=== PATIENT | female | born 1995 | race Caucasian/White ===

== ENCOUNTER 2017-02-24 00:17 | Emergency (ER) | payer OTHER ==
[~2017-02-24] VITALS: Ht 160 cm; Wt 88.0 kg
[~2017-02-24 00:17] MED LIST: CIPR500T4 PO; ONDA4TAB8 PO; PRENAT PO; RANI150T9 PO
[2017-02-24 00:38] VITALS: Ht 160 cm; Wt 88.0 kg
[2017-02-24 02:19] LABS: ADD UMIC YES; URINE BILIRUBIN (Dip) NEGATIVE (NEGATIVE); URINE BLOOD (Dip) TRACE (NEGATIVE); URINE COLOR LT. YELLOW (YELLOW); URINE GLUCOSE (Dip) NEGATIVE (NEGATIVE); URINE KETONES (Dip) NEGATIVE (NEGATIVE); URINE LEUKOCYTE ESTERASE (Dip) NEGATIVE (NEGATIVE); URINE NITRITE (Dip) NEGATIVE (NEGATIVE); URINE TOTAL PROTEIN (Dip) NEGATIVE (NEGATIVE); URINE UROBILINOGEN (Dip) 0.2 E.U./dL (0.1-1.0)
[2017-02-24 02:38] LABS: URINE RBCS 0-2 /HPF (0)
[2017-02-24 02:39] LABS: BACTERIA,URINE RARE; MUCUS,URINE FEW; SQUAMOUS EPITHELIAL CELL,UR FEW
[2017-02-24] MEDS ORDERED: PHEN-538 PO (02:55)
--- NOTE | 2017-02-24 03:19 | ERD ---
ER Documentation Chief Complaint Date/Time DATE: 02/24/17 TIME: 03:14 Chief Complaint Bladder pain and constant urination. recurrent hx of UTI per pt HPI This is a 21-year-old female presenting to the emergency department complaining of pressure like vaginal pressure with sensation of feeling like bulge this past week. Patient denies significant pain, states it is more pressure rating it moderate in severity. She admits to urgency. Patient denies hematuria, vaginal discharge, fevers, flank pain. Patient denies taking any medications for this. ROS All systems reviewed and are negative except as per history of present illness. Medications Home Meds Active Scripts Phenazopyridine Hcl* (Pyridium*) 200 Mg Tab, 200 MG PO TID Y for URINARY PAIN, # 6 TAB Prov:MERARI DANIELLE PA-C 02/24/17 Ranitidine Hcl* (Zantac*) 150 Mg Tablet, 150 MG PO BID Y for EPIGASTRIC PAIN, # 30 TAB Prov:MAMIE REECE DO 10/02/16 Ondansetron Hcl* (Zofran*) 4 Mg Tablet, 4 MG PO Q8H Y for NAUSEA AND/OR VOMITING , #10 TAB Prov:MAMIE REECE DO 10/02/16 Ciprofloxacin Hcl* (Ciprofloxacin Hcl*) 500 Mg Tablet, 500 MG PO BID for 3 Days , TAB Prov:MAMIE REECE DO 10/02/16 Reported Medications Multivit/Min/Fol Ac/Iron/Pren* ( S*) 1 Tab Tab, 1 TAB PO DAILY, TAB 06/16/16 Allergies Allergies: Coded Allergies: No Known Allergy (Unverified , 06/16/16) PMhx/Soc History of Surgery: Yes () Anesthesia Reaction: No Hx Neurological Disorder: No Hx Respiratory Disorders: No Hx Cardiac Disorders: No Hx Psychiatric Problems: No Hx Miscellaneous Medical Probl: Yes (chronic utis) Hx Alcohol Use: No Hx Substance Use: No Hx Tobacco Use: No Smoking Status: Never smoker Physical Exam Vitals Vital Signs Date Time Temp Pulse Resp B/P Pulse Ox O2 Delivery O2 Flow Rate FiO2 02/24/17 00:38 98.7 89 20 123/74 97 Physical Exam GENERAL: well-developed/well-nourished, in no apparent distress, non-toxic appearing HENT: NC/AT, moist mucous membranes EYES: Conjunctiva normal NECK: Supple, no lymphadenopathy PULM: CTA bilaterally, no rales, rhonchi, or wheezing heard CV: Normal S1S2, RRR, good capillary refill GI: Soft, non-distended, mild tender to palpation pelvic Normal bowel sounds, no masses or organomegaly felt on exam No gross peritonitis, no bruits Negative Rovsing, negative Jimenez, negative McBurney's point, Negative CVAT BACK: No masses EXT: No clubbing, cyanosis, or edema NEURO: Alert and Orientated SKIN: Intact, normal turgor PSYCH: Normal mood and mentation Results 24 hrs Laboratory Tests Test 02/24/17 01:35 Urine Color LT. YELLOW Urine Clarity CLEAR Urine pH 5.5 Urine Specific [place] >=1.030 Urine Ketones NEGATIVE Urine Nitrite NEGATIVE Urine Bilirubin NEGATIVE Urine Urobilinogen 0.2 E.U./dL Urine Leukocyte Esterase NEGATIVE Urine Microscopic RBC 0-2/HPF Urine Microscopic WBC 0-2/HPF Urine Squamous Epithelial Cells FEW Urine Bacteria RARE Urine Mucus FEW Urine Hemoglobin TRACE Urine Glucose NEGATIVE% Urine Total Protein NEGATIVE Procedures/MDM This is a 21-year-old female presenting to the emergency department complaining of pressure like sensation in the vaginal region for the past week with urgency likely due to a uterine prolapse. I will low suspicion for urinary tract infection, pyelonephritis, nephrolithiasis due to physical examination. Patient has stable vital signs, she appears well. A urinalysis was done and did not show any evidence of urinary tract infection or hemoglobin. Urine test is negative. I discussed the patient that she is suitable to follow-up with an NET MVC DEVELOPER for further evaluation and management. I discussed with her to return to the ER for any worsening signs or symptoms. Patient stable for discharge for home. Prescription for Pyridium was provided. Patient understands and agrees with this plan Departure Diagnosis: Primary Impression: Uterine prolapse Additional Impression: Dysuria Condition: Stable Patient Instructions: Dysuria, Pelvic Organ Prolapse: Surgery for Uterine Prolapse Referrals: [facility] DEVELOPER REFERRAL LIST CINDY MEJÍA [place] [id number]ABUSLE[address] MAN[address] [place] [id number] [address] VAL[address] [place]AMIDE [id number] [facility] , [place] [address] [address] BRITO, [facility] [address], [address], [place] [address] [facility] [address] [facility], [place] [address] [facility] [address] [place] [address] [facility] [id number] [address] WATT FANY [address] [place] [address] [address] WADDELL, [place] [address] [facility]. [address], [facility] [address] [address] SORTO, [facility] [address] [place], [place] [address] Additional Instructions: FOLLOW UP WITH YOUR PRIMARY CARE PHYSICIAN TOMORROW.Return to this facility if you are not improving as expected. Take all medicines as directed. Return to this facility if you are not improving as expected. MERARI DANIELLE PA-C February 24, 2017 03:19
== END 2017-02-24 03:19 | disposition home or self-care (01) ==
LOC: FTE 00:17
DX: N81.4 Uterovaginal prolapse, unspecified (principal); R30.0 Dysuria; R10.2 Pelvic and perineal pain
CPT/HCPCS: 81001; 87591; Z7502; 81003; 99283

== ENCOUNTER 2017-06-24 07:01 | Emergency (ER) | payer OTHER ==
[~2017-06-24] VITALS: Ht 152.4 cm; Wt 85.0 kg
[~2017-06-24 07:01] MED LIST changes: +PHEN-538 PO
[2017-06-24 07:03] VITALS: Ht 152.4 cm; Wt 85.0 kg
[2017-06-24] MEDS ORDERED: ONDANSETRON 4 MG INJ IV STA (07:19)
[2017-06-24] MEDS ORDERED: SOD CHLORIDE 0.9% 1,000 ML IV STA (07:19)
[2017-06-24] MEDS ORDERED: morphine 4 MG/ML VIAL IV STA (07:19)
[2017-06-24] MEDS ORDERED: HYDROmorphONE 1 MG/ML SYG IV STA (07:38)
[2017-06-24 07:50] LABS: BASOPHIL # 0.1 10^3/ul (0.0-0.1); BASOPHILS % 0.6 % (0.0-2.0); EOSINOPHILS # 0.4 10^3/ul (0.0-0.5); HEMATOCRIT 44.9 % (37.0-47.0); HEMOGLOBIN 14.5 g/dl (12.0-16.0); LYMPHOCYTES # 3.3 10^3/ul (0.8-2.9); LYMPHOCYTES % 33.3 % (15.0-51.0); MEAN CORPUSCULAR HEMOGLOBIN 26.6 pg (29.0-33.0); MEAN CORPUSCULAR HGB CONC 32.3 g/dl (32.0-37.0); MEAN CORPUSCULAR VOLUME 82.4 fl (82.0-101.0); MEAN PLATELET VOLUME 10.4 fl (7.4-10.4); MONOCYTE # 0.7 10^3/ul (0.3-0.9); MONOCYTES % 7.3 % (0.0-11.0); NEUTROPHIL # 5.4 10^3/ul (1.6-7.5); NEUTROPHILS % 54.5 % (39.0-77.0); PLATELET COUNT 281 10^3/UL (140-415); RED BLOOD COUNT 5.45 10^6/ul (4.20-5.40); RED CELL DISTRIBUTION WIDTH 13.2 % (11.5-14.5); WHITE BLOOD COUNT 9.9 10^3/ul (4.8-10.8)
[2017-06-24 07:55] LABS: ADD UMIC YES; UR ASCORBIC ACID NEGATIVE (NEGATIVE); UR BACTERIA FEW /HPF (NONE SEEN); UR BILIRUBIN (Dip) NEGATIVE (NEGATIVE); UR BLOOD (Dip) 1+ mg/dL (NEGATIVE); UR CLARITY SLIGHTLY CLOUDY (CLEAR); UR COLOR YELLOW (YELLOW); UR GLUCOSE (Dip) NEGATIVE (NEGATIVE); UR KETONES (Dip) NEGATIVE (NEGATIVE); UR LEUKOCYTE ESTERASE (Dip) TRACE Leu/ul (NEGATIVE); UR MUCUS FEW /HPF (NONE SEEN); UR NITRITE (Dip) NEGATIVE (NEGATIVE); UR RBC 4 /HPF (0-5); UR SPECIFIC GRAVITY (Dip) 1.027 (1.003-1.030); UR SQUAMOUS EPITHELIAL CELL FEW /HPF (FEW); UR TOTAL PROTEIN (Dip) NEGATIVE (NEGATIVE); UR UROBILINOGEN (Dip) 1+ mg/dL (NEGATIVE)
[2017-06-24] MEDS ORDERED: KETOROLAC 30 MG INJ IV STA (08:08)
[2017-06-24 08:12] LABS: ALBUMIN 4.2 g/dl (3.3-4.9); ALBUMIN/GLOBULIN RATIO 1.35; BILIRUBIN,INDIRECT 0.1 mg/dl (0-1.1); BILIRUBIN,TOTAL 0.1 mg/dl (0.2-1.3); CALCIUM 9.2 mg/dl (8.4-10.2); CREATININE 0.66 mg/dl (0.44-1.00); POTASSIUM 3.7 mmol/L (3.5-5.1); TOTAL PROTEIN 7.3 g/dl (6.1-8.1)
--- NOTE | 2017-06-24 08:17 | RADRPT ---
PROCEDURE: US Abdomen. CLINICAL INDICATION: Abdominal Pain TECHNIQUE: Multiple real-time images were acquired of the patient's abdomen and retroperitoneum ut ilizing a high resolution transducer. COMPARISON: None FINDINGS: The liver demonstrates normal echogenicity. The liver is normal in size and no focal lesions are se en. The portal vein is patent with normal direction of flow. No intrahepatic biliary dilatation is seen. Gallbladder demonstrates cholelithiasis. There is no pericholecystic fluid or gallbladder wall thic kening. The common bile duct measures 4.6 mm in maximal dimension. The visualized portions of the pancreas are unremarkable. No free fluid is identified. The right kidney is normal size, and demonstrate normal echogenicity and cortical thickness. The ri ght kidney measures 10.9 cm in long dimension. There is no evidence of hydronephrosis. There are no kidney stones. IMPRESSION: Cholelithiasis without sonographic evidence of acute cholecystitis. RPTAT: QQ Physician Katina Date Time Electronically viewed and signed by Physician Katina on 06/24/2017 08:17 /
[2017-06-24] MEDS ORDERED: ONDA8TAB14 PO (08:34)
[2017-06-24] MEDS ORDERED: IBUP-1542 PO (08:34)
[2017-06-24] MEDS ORDERED: HYDR-906 PO (08:34)
--- NOTE | 2017-06-24 08:41 | ERD ---
ER Documentation Chief Complaint Date/Time DATE: 06/24/17 TIME: 08:38 Chief Complaint RUQ abdominal pain , nausea on & off x 1 week HPI 21-year-old female presents with intermittent worsening right upper quadrant abdominal pain for last week. She has nausea but no vomiting and denies fevers. She has not been seen for this before denies any history of gallstones. She denies . ROS All systems reviewed and are negative except as per history of present illness. Medications Home Meds Active Scripts Ondansetron (Ondansetron Odt) 8 Mg Tab.rapdis, 8 MG PO Q6H Y for NAUSEA AND/OR VOMITING, #10 TAB Prov:SUMANTH CARVAJAL MD 06/24/17 Ibuprofen* (Motrin*) 600 Mg Tab, 600 MG PO Q6, #20 TAB Prov:SUMANTH CARVAJAL MD 06/24/17 Hydrocodone/Acetaminophen (Nursery 5-325 Tablet) 1 Each Tablet, 1 TAB PO Q6H Y for PAIN, #15 TAB Prov:SUMANTH CARVAJAL MD 06/24/17 Phenazopyridine Hcl* (Pyridium*) 200 Mg Tab, 200 MG PO TID Y for URINARY PAIN, # 6 TAB Prov:MERARI DANIELLE PA-C 02/24/17 Ranitidine Hcl* (Zantac*) 150 Mg Tablet, 150 MG PO BID Y for EPIGASTRIC PAIN, # 30 TAB Prov:MAMIE REECE DO 10/02/16 Ondansetron Hcl* (Zofran*) 4 Mg Tablet, 4 MG PO Q8H Y for NAUSEA AND/OR VOMITING , #10 TAB Prov:MAMIE REECE DO 10/02/16 Ciprofloxacin Hcl* (Ciprofloxacin Hcl*) 500 Mg Tablet, 500 MG PO BID for 3 Days , TAB Prov:MAMIE REECE DO 10/02/16 Reported Medications Multivit/Min/Fol Ac/Iron/Pren* ( S*) 1 Tab Tab, 1 TAB PO DAILY, TAB 06/16/16 Allergies Allergies: Coded Allergies: No Known Allergy (Unverified , 06/24/17) PMhx/Soc History of Surgery: Yes () Anesthesia Reaction: No Hx Neurological Disorder: No Hx Respiratory Disorders: No Hx Cardiac Disorders: No Hx Psychiatric Problems: No Hx Miscellaneous Medical Probl: Yes (chronic utis) Hx Alcohol Use: No Hx Substance Use: No Hx Tobacco Use: No Physical Exam Vitals Vital Signs Date Time Temp Pulse Resp B/P Pulse Ox O2 Delivery O2 Flow Rate FiO2 06/24/17 07:03 98.2 65 18 135/92 99 Physical Exam Const: []Alert, not ill-appearing. Morbidly obese. Head: Atraumatic Eyes: Normal Conjunctiva ENT: Normal External Ears, Nose and Mouth. Neck: Full range of motion..~ No meningismus. Resp: Clear to auscultation bilaterally Cardio: Regular rate and rhythm, no murmurs Abd: Soft, Positive Jimenez sign. No tenderness at McBurney's point no rebound., non distended. Normal bowel sounds Skin: No petechiae or rashes Back: No midline or flank tenderness Ext: No cyanosis, or edema Neur: Awake and alert Psych: Normal Mood and Affect Result Diagram: 06/24/17 0731 06/24/17 0731 Results 24 hrs Laboratory Tests Test 06/24/17 07:31 White Blood Count 9.910^3/ul Red Blood Count 5.4510^6/ul Hemoglobin 14.5g/dl Hematocrit 44.9% Mean Corpuscular Volume 82.4fl Mean Corpuscular Hemoglobin 26.6pg Mean Corpuscular Hemoglobin Concent 32.3g/dl Red Cell Distribution Width 13.2% Platelet Count 27697^3/UL Mean Platelet Volume 10.4fl Neutrophils % 54.5% Lymphocytes % 33.3% Monocytes % 7.3% Eosinophils % 4.0% Basophils % 0.6% Nucleated Red Blood Cells % 0.0/100WBC Neutrophils # 5.410^3/ul Lymphocytes # 3.310^3/ul Monocytes # 0.710^3/ul Eosinophils # 0.410^3/ul Basophils # 0.110^3/ul Nucleated Red Blood Cells # 0.010^3/ul Urine Color YELLOW Urine Clarity SLIGHTLY CLOUDY Urine pH 6.0 Urine Specific [place] 1.027 Urine Ketones NEGATIVEmg/dL Urine Nitrite NEGATIVEmg/dL Urine Bilirubin NEGATIVEmg/dL Urine Urobilinogen 1+mg/dL Urine Leukocyte Esterase TRACELeu/ul Urine Microscopic RBC 4/HPF Urine Microscopic WBC 5/HPF Urine Squamous Epithelial Cells FEW/HPF Urine Bacteria FEW/HPF Urine Mucus FEW/HPF Urine Hemoglobin 1+mg/dL Urine Glucose NEGATIVEmg/dL Urine Total Protein NEGATIVEmg/dl Sodium Level 142mmol/L Potassium Level 3.7mmol/L Chloride Level 106mmol/L Carbon Dioxide Level 28mmol/L Anion Gap 12 Blood Urea Nitrogen 13mg/dl Creatinine 0.66mg/dl Glucose Level 96mg/dl Calcium Level 9.2mg/dl Total Bilirubin 0.1mg/dl Direct Bilirubin 0.00mg/dl Indirect Bilirubin 0.1mg/dl Aspartate Amino Transf (AST/SGOT) 18IU/L Alanine Aminotransferase (ALT/SGPT) 24IU/L Alkaline Phosphatase 149IU/L Total Protein 7.3g/dl Albumin 4.2g/dl Globulin 3.10g/dl Albumin/Globulin Ratio 1.35 Lipase 118U/L Current Medications Medications (Trade) Dose Ordered Sig/Teresa Route PRN Reason Start Time Stop Time Status Last Admin Dose Admin Sodium Chloride (NS) 1,000 ml @ 1,000 mls/hr Q1H STAT IV 06/24/17 07:19 06/24/17 08:18 DC 06/24/17 07:31 Morphine Sulfate (morphine) 4 mg ONCE STAT IV 06/24/17 07:19 06/24/17 07:39 DC 06/24/17 07:33 Ondansetron HCl (Zofran Inj) 4 mg ONCE STAT IV 06/24/17 07:19 06/24/17 07:21 DC 06/24/17 07:32 Hydromorphone HCl (Dilaudid) 1 mg ONCE STAT IV 06/24/17 07:38 06/24/17 07:39 DC 06/24/17 07:43 Ketorolac Tromethamine (Toradol) 30 mg ONCE STAT IV 06/24/17 08:08 06/24/17 08:18 DC 06/24/17 08:22 Procedures/MDM CBC and CMP normal. Lipase is normal. Patient was given Dilaudid 1 mg IV Zofran 4 mg IV. Right upper quadrant ultrasound confirms gallstones without evidence of cholecystitis, common bile duct obstruction. Patient was given Toradol 30 mg IV persistent pain. Patient was discharged home with pain control and Zofran and primary care and general surgery follow-up. She is advised to return for fevers, vomiting, worsening pain, new worsening symptoms. The patient was stable with no new complaints during the ER course. Clinically , there is no current evidence to suggest meningitis, sepsis, acute abdomen, pneumonia, acute coronary syndrome, pulmonary embolism, or any other emergent condition appearing to require further evaluation or hospitalization. The patient should certainly return for any new or worsening symptoms per the aftercare instructions. They should otherwise follow-up with her primary care doctor for reevaluation this week. Departure Diagnosis: Primary Impression: Gallstones Condition: Stable Patient Instructions: Biliary Colic With Gallstone (Confirmed) Referrals: LEATHA RUST MD, KAMBIZ M.D. LOMIS, THOMAS MD Additional Instructions: Examinations today confirm gallstones without evidence of infection or obstruction. See surgery for follow-up and further treatment. May need authorization from primary care doctor. Vomiting, new or worsening symptoms. SUMANTH CARVAJAL MD Jun 24, 2017 08:41
== END 2017-06-24 08:55 | disposition home or self-care (01) ==
LOC: FTE 07:01
DX: K80.20 Calculus of gallbladder without cholecystitis without obstruction (principal); R11.0 Nausea
CPT/HCPCS: 36415; 76705; 80053; 81001; 83690; 85025; 96374; 96375; J1170; J1885; J2270; J2405; J7030; Z7502

== ENCOUNTER 2017-07-09 23:42 | Inpatient (IN) | payer OTHER ==
[~2017-07-09] VITALS: Ht 152.4 cm; Wt 84.5 kg
[~2017-07-09 23:42] MED LIST changes: +HYDR-906 PO; +IBUP-1542 PO; +ONDA8TAB14 PO
[2017-07-10] MEDS ORDERED: ONDANSETRON 4 MG INJ IV STA (01:11)
[2017-07-10] MEDS ORDERED: SOD CHLORIDE 0.9% 1,000 ML IV STA (01:11)
[2017-07-10] MEDS ORDERED: morphine 4 MG/ML VIAL IV STA (01:11)
--- NOTE | 2017-07-10 01:27 | ERD ---
ER Documentation Chief Complaint Date/Time DATE: 07/10/17 TIME: 01:24 Chief Complaint RUQ abd pain since fri has gallstones norco doesnt work and has n/v HPI 21-year-old female presents to emergency department for complaints of right upper quadrant abdominal pain that started 2 days ago. Patient has history of gallbladder stones, was given [place], she took it, it helped for a little bit, started to have the pain again. Patient describes the pain as sharp pain, 6/10 scale, accompanied with vomiting. Patient denies any diarrhea or constipation. Patient denies any hematuria or dysuria. Patient denies any fever or chills. ROS All systems reviewed and are negative except as per history of present illness. Medications Home Meds Active Scripts Ondansetron (Ondansetron Odt) 8 Mg Tab.rapdis, 8 MG PO Q6H Y for NAUSEA AND/OR VOMITING, #10 TAB Prov:SUMANTH CARVAJAL MD 06/24/17 Ibuprofen* (Motrin*) 600 Mg Tab, 600 MG PO Q6, #20 TAB Prov:SUMANTH CARVAJAL MD 06/24/17 Hydrocodone/Acetaminophen ([place] 5-325 Tablet) 1 Each Tablet, 1 TAB PO Q6H Y for PAIN, #15 TAB Prov:SUMANTH CARVAJAL MD 06/24/17 Phenazopyridine Hcl* (Pyridium*) 200 Mg Tab, 200 MG PO TID Y for URINARY PAIN, # 6 TAB Prov:MERARI DANIELLE PA-C 02/24/17 Ranitidine Hcl* (Zantac*) 150 Mg Tablet, 150 MG PO BID Y for EPIGASTRIC PAIN, # 30 TAB Prov:MAMIE REECE DO 10/02/16 Ondansetron Hcl* (Zofran*) 4 Mg Tablet, 4 MG PO Q8H Y for NAUSEA AND/OR VOMITING , #10 TAB Prov:MAMIE REECE DO 10/02/16 Ciprofloxacin Hcl* (Ciprofloxacin Hcl*) 500 Mg Tablet, 500 MG PO BID for 3 Days , TAB Prov:MAMIE REECE DO 10/02/16 Reported Medications Multivit/Min/Fol Ac/Iron/Pren* ( S*) 1 Tab Tab, 1 TAB PO DAILY, TAB 06/16/16 Allergies Allergies: Coded Allergies: No Known Allergy (Unverified , 06/24/17) PMhx/Soc History of Surgery: Yes () Anesthesia Reaction: No Hx Neurological Disorder: No Hx Respiratory Disorders: No Hx Cardiac Disorders: No Hx Psychiatric Problems: No Hx Miscellaneous Medical Probl: Yes (chronic utis) Hx Alcohol Use: No Hx Substance Use: No Hx Tobacco Use: No FmHx Family History: No coronary disease, No diabetes, No other Physical Exam Vitals Vital Signs Date Time Temp Pulse Resp B/P Pulse Ox O2 Delivery O2 Flow Rate FiO2 07/09/17 23:49 98.3 62 18 125/73 99 Physical Exam GENERAL: The patient is well developed and appropriate for usual state of health, in no apparent distress. CHEST: Clear to auscultation bilaterally. There are no rales, wheezes or rhonchi. HEART: Regular rate and rhythm. No murmurs, clicks, rubs or gallops. No S3 or S4. ABDOMEN: Soft, nontender and nondistended. Good bowel sounds. No rebound or guarding. No gross peritonitis. No gross organomegaly or masses. No Jimenez sign or McBurney point tenderness. BACK: No midline or flank tenderness. EXTREMITIES: Equal pulses bilaterally. There is no peripheral clubbing, cyanosis or edema. No focal swelling or erythema. Full range of motion. Grossly neurovascularly intact. NEURO: Alert and oriented. Cranial nerves 2-12 intact. Motor strength in all 4 extremities with 5/5 strength. Sensation grossly intact. Normal speech and gait. SKIN: There is no apparent rash or petechia. The skin is warm and dry. HEMATOLOGIC AND LYMPHATIC: There is no evidence of excessive bruising or lymphedema. No gross cervical, axillary, or inguinal lymphadenopathy. Result Diagram: 07/10/17 0206 07/10/17 0206 Results 24 hrs Laboratory Tests Test 07/10/17 01:48 07/10/17 02:06 Urine Color FRANKO Urine Clarity SLIGHTLY CLOUDY Urine pH 7.0 Urine Specific [place] 1.014 Urine Ketones 1+mg/dL Urine Nitrite NEGATIVEmg/dL Urine Bilirubin 2+mg/dL Urine Urobilinogen 2+mg/dL Urine Leukocyte Esterase NEGATIVELeu/ul Urine Microscopic RBC 0/HPF Urine Microscopic WBC 7/HPF Urine Squamous Epithelial Cells FEW/HPF Urine Bacteria FEW/HPF Urine Mucus MANY/HPF Urine Hemoglobin NEGATIVEmg/dL Urine Glucose NEGATIVEmg/dL Urine Total Protein NEGATIVEmg/dl White Blood Count 8.010^3/ul Red Blood Count 5.4610^6/ul Hemoglobin 14.6g/dl Hematocrit 45.6% Mean Corpuscular Volume 83.5fl Mean Corpuscular Hemoglobin 26.7pg Mean Corpuscular Hemoglobin Concent 32.0g/dl Red Cell Distribution Width 13.6% Platelet Count 74371^3/UL Mean Platelet Volume 10.6fl Neutrophils % 67.9% Lymphocytes % 24.4% Monocytes % 4.4% Eosinophils % 2.2% Basophils % 0.7% Nucleated Red Blood Cells % 0.0/100WBC Neutrophils # 5.510^3/ul Lymphocytes # 2.010^3/ul Monocytes # 0.410^3/ul Eosinophils # 0.210^3/ul Basophils # 0.110^3/ul Nucleated Red Blood Cells # 0.010^3/ul Sodium Level 142mmol/L Potassium Level 3.7mmol/L Chloride Level 103mmol/L Carbon Dioxide Level 31mmol/L Anion Gap 12 Blood Urea Nitrogen 6mg/dl Creatinine 0.79mg/dl Glucose Level 103mg/dl Calcium Level 9.3mg/dl Total Bilirubin 2.6mg/dl Direct Bilirubin 1.70mg/dl Indirect Bilirubin 0.9mg/dl Aspartate Amino Transf (AST/SGOT) 613IU/L Alanine Aminotransferase (ALT/SGPT) 855IU/L Alkaline Phosphatase 288IU/L Total Protein 7.3g/dl Albumin 4.2g/dl Globulin 3.10g/dl Albumin/Globulin Ratio 1.35 Lipase 109U/L Current Medications Medications (Trade) Dose Ordered Sig/Teresa Route PRN Reason Start Time Stop Time Status Last Admin Dose Admin Sodium Chloride (NS) 1,000 ml @ 1,000 mls/hr Q1H STAT IV 07/10/17 01:11 07/10/17 02:10 DC 07/10/17 02:21 Morphine Sulfate (morphine) 4 mg ONCE STAT IV 07/10/17 01:11 07/10/17 01:13 DC Ondansetron HCl (Zofran Inj) 4 mg ONCE STAT IV 07/10/17 01:11 07/10/17 01:13 DC 07/10/17 02:21 Metoclopramide HCl (Reglan) 10 mg ONCE ONCE IV 07/10/17 03:00 07/10/17 03:01 DC 07/10/17 03:07 Patient was given medication for pain here in emergency department, after treatment, patient verbalized feeling much better. Patient's pain is improved. Patient was given Zofran here in the emergency department. After treatment, patient was able to tolerate po fluids here in the emergency department without any vomiting. There is no signs and symptoms of dehydration. Normal saline IV bolus was given here in emergency department for rehydration, patient tolerated IV fluids. All PROCEDURE: US Abdomen (right upper quadrant). CLINICAL INDICATION: Abdominal pain TECHNIQUE: Multiple real-time longitudinal and transverse images of the right upper quadrant of the abdomen were acquired utilizing a curved array transducer. Images were reviewed on a high-resolution PACS workstation. COMPARISON: 06/24/2017 FINDINGS: The liver is normal in size and echogenicity without focal mass or intrahepatic biliary dilatation. There is normal hepatopedal flow within the main portal vein. The gallbladder is contracted and filled with multiple gallstones. There is no pericholecystic fluid or gallbladder wall thickening . No intra or extrahepatic biliary dilatation is seen. The common bile duct measures 4.4 mm in maximal dimension. The visualized portions of the pancreas are unremarkable with obscuration of the tail of the pancreas. No free fluid is identified. Jimenez's sign was elicited. The right kidney measures 9.7 cm in length. There is normal echogenicity within the right kidney. There is no perinephric fluid collection. No hydronephrosis, mass, or calculus is seen. IMPRESSION: Contracted gallbladder filled with gallstones. RPTAT: HCNS Physician Abdullahi Date Time Electronically viewed and signed by Physician Abdullahi on 07/10/2017 02: 45 CS/ CC: KAT THOMPSON NP Procedures/MDM Medical decision making: Patient does have abdominal pain most likely is consistent with acute cholecystitis, patient has elevated liver function tests, elevated total bilirubin, gallbladder is filled with gallbladder stones. I discussed this case with my attending physician, Dr. Bee, who agrees with plan of admitting patient to the hospital for further evaluation and possible surgical intervention. Patient was made aware of this plan, agrees with plan at this time. At this time, patient's pain is controlled. Departure Diagnosis: Primary Impression: Cholecystitis Condition: KAT Braxton NP Jul 10, 2017 01:27
[2017-07-10 02:18] LABS: BASOPHIL # 0.1 10^3/ul (0.0-0.1); BASOPHILS % 0.7 % (0.0-2.0); EOSINOPHILS # 0.2 10^3/ul (0.0-0.5); EOSINOPHILS % 2.2 % (0.0-7.0); HEMATOCRIT 45.6 % (37.0-47.0); HEMOGLOBIN 14.6 g/dl (12.0-16.0); LYMPHOCYTES % 24.4 % (15.0-51.0); MEAN CORPUSCULAR HEMOGLOBIN 26.7 pg (29.0-33.0); MEAN CORPUSCULAR VOLUME 83.5 fl (82.0-101.0); MEAN PLATELET VOLUME 10.6 fl (7.4-10.4); MONOCYTE # 0.4 10^3/ul (0.3-0.9); MONOCYTES % 4.4 % (0.0-11.0); NEUTROPHIL # 5.5 10^3/ul (1.6-7.5); NEUTROPHILS % 67.9 % (39.0-77.0); PLATELET COUNT 234 10^3/UL (140-415); RED BLOOD COUNT 5.46 10^6/ul (4.20-5.40); RED CELL DISTRIBUTION WIDTH 13.6 % (11.5-14.5)
--- NOTE | 2017-07-10 02:45 | RADRPT ---
PROCEDURE: US Abdomen (right upper quadrant). CLINICAL INDICATION: Abdominal pain TECHNIQUE: Multiple real-time longitudinal and transverse images of the right upper quadrant of th e abdomen were acquired utilizing a curved array transducer. Images were reviewed on a high-resoluti on PACS workstation. COMPARISON: 06/24/2017 FINDINGS: The liver is normal in size and echogenicity without focal mass or intrahepatic biliary dilatation. There is normal hepatopedal flow within the main portal vein. The gallbladder is contracted and fi lled with multiple gallstones. There is no pericholecystic fluid or gallbladder wall thickening . N o intra or extrahepatic biliary dilatation is seen. The common bile duct measures 4.4 mm in maximal dimension. The visualized portions of the pancreas are unremarkable with obscuration of the tail o f the pancreas. No free fluid is identified. Jimenez's sign was elicited. The right kidney measures 9.7 cm in length. There is normal echogenicity within the right kidney. There is no perinephric fluid collection. No hydronephrosis, mass, or calculus is seen. IMPRESSION: Contracted gallbladder filled with gallstones. RPTAT: HCNS Physician Abdullahi Date Time Electronically viewed and signed by Physician Abdullahi on 07/10/2017 02:45 CS/
[2017-07-10 02:59] LABS: ADD UMIC NO; UR ASCORBIC ACID NEGATIVE (NEGATIVE); UR BACTERIA FEW /HPF (NONE SEEN); UR BILIRUBIN (Dip) 2+ mg/dL (NEGATIVE); UR BLOOD (Dip) NEGATIVE (NEGATIVE); UR CLARITY SLIGHTLY CLOUDY (CLEAR); UR COLOR AMBER (YELLOW); UR GLUCOSE (Dip) NEGATIVE (NEGATIVE); UR KETONES (Dip) 1+ mg/dL (NEGATIVE); UR LEUKOCYTE ESTERASE (Dip) NEGATIVE Leu/ul (NEGATIVE); UR MUCUS MANY /HPF (NONE SEEN); UR NITRITE (Dip) NEGATIVE (NEGATIVE); UR RBC 0 /HPF (0-5); UR SPECIFIC GRAVITY (Dip) 1.014 (1.003-1.030); UR SQUAMOUS EPITHELIAL CELL FEW /HPF (FEW); UR TOTAL PROTEIN (Dip) NEGATIVE (NEGATIVE); UR UROBILINOGEN (Dip) 2+ mg/dL (NEGATIVE)
[2017-07-10] MEDS ORDERED: METOCLOPRAMIDE 10 MG INJ IV ONE (03:00)
[2017-07-10 03:05] LABS: ALBUMIN 4.2 g/dl (3.3-4.9); ALBUMIN/GLOBULIN RATIO 1.35; BILIRUBIN,DIRECT 1.7 mg/dl (0.00-0.20); BILIRUBIN,INDIRECT 0.9 mg/dl (0-1.1); BILIRUBIN,TOTAL 2.6 mg/dl (0.2-1.3); CALCIUM 9.3 mg/dl (8.4-10.2); CREATININE 0.79 mg/dl (0.44-1.00); POTASSIUM 3.7 mmol/L (3.5-5.1); TOTAL PROTEIN 7.3 g/dl (6.1-8.1)
[2017-07-10] MEDS ORDERED: ONDANSETRON 4 MG INJ IV PRN (04:00)
[2017-07-10] MEDS ORDERED: NACL 0.9% 3 ML SYG IV SCH (04:00)
[2017-07-10] MEDS ORDERED: METOCLOPRAMIDE 10 MG INJ IV PRN (04:00)
[2017-07-10] MEDS ORDERED: ACETAMINOPHEN 325 MG TAB PO PRN (04:00)
[2017-07-10] MEDS ORDERED: DOCUSATE SODIUM 100 MG CAP PO PRN (04:00)
[2017-07-10] MEDS ORDERED: ZOLPIDEM 5 MG TAB PO PRN (04:00)
[2017-07-10 04:16] LABS: INR 0.92; PROTIME 12.4 Sec (12.2-14.2)
[2017-07-10] MEDS: SOD CHLORIDE 0.9% 1,000 ML IV SCH ×2 (04:30→18:34)
[2017-07-10 04:54] VITALS: TEMP 97.4
[2017-07-10 05:35] VITALS: Ht 152.4 cm; Wt 84.5 kg
[2017-07-10 05:44] VITALS: BP 122/58; PULSE 52; RESP 18
[2017-07-10] MEDS: metroNIDAZOLE 500 MG/NS (PMX) 100 ML IVPB SCH ×3 (06:03→21:13)
[2017-07-10 08:00] VITALS: BP 101/59; RESP 19
[2017-07-10] MEDS: CEFTRIAXONE 1 GM/50 ML (PMX) 50 ML IVPB SCH (08:45)
[2017-07-10] MEDS: FAMOTIDINE 20 MG INJ IV SCH ×2 (08:45→21:13)
[2017-07-10] MEDS ORDERED: CEFTRIAXONE 1 GM/50 ML (PMX) 50 ML IVPB ONE (09:00)
--- NOTE | 2017-07-10 13:30 | CONS ---
Date/Time of Note Date/Time of Note DATE: 07/10/17 TIME: 12:49 Assessment/Plan Assessment/Plan Chief Complaint/Hosp Course 1. Symptomatic Cholelithiasis: with elevated LFT's -lap lashawn possibly tomorrow -npo -pain management -ivf 2. Hyperbilirubinemia: ? choledocholithiasis -MRCP -gi consult 3. Transaminitis: likely 2/2 above -as above 4. UTI: no dysuria -abx per sensitivity -encourage frequent bladder emptying 5. Severe obesity: -weight management - diet and nutrition optimization Thank you. Patient seen and examined in collaboration with Dr. Brandon Mackey. Problems: Consultation Date/Type/Reason Admit Date/Time Jul 10, 2017 at 03:34 Date of Consultation: Jul 10, 2017 Type of Consultation: Surgical Reason for Consultation Abdominal pain; cholelithiasis Hx of Present Illness Daly Tran is a 21 yo woman who presents to [facility] ED with c/o non radiating right upper quadrant pain, described as squeezing and strong. The pain is brought about after meals. Associated factors include nausea without vomiting. She denies fevers, chills, hematemesis, cp, palpitations, diarrhea, constipation. She has significant history of gallstones that was diagnosed in June. Gallbladder US showed gallstones without pericholecystic fluid or gb wall thickening. General surgery was asked to consult. Constitutional: No chills, No diaphoresis Eyes: No discharge, No visual change ENT: No congestion Respiratory: No cough, No shortness of breath Cardiovascular: No chest pain, No lightheadedness, No orthopenea Gastrointestinal: flatus, nausea, other (as above), passing stool, No blood, No constipation, No diarrhea, No vomiting Genitourinary: No dysuria Musculoskeletal: No back pain Skin: No bruising, No rash Neurologic: No dizziness, No headache Lymphatic: No adenopathy Psychological: No anxiety Past Medical History Severe obesity UTI gallstones Past Surgical History Family History Significant Family History: no pertinent family hx Social History Smoking Status: Never smoker Exam/Review of Systems Vital Signs Vitals Vital Signs Date Time Temp Pulse Resp B/P Pulse Ox O2 Delivery O2 Flow Rate FiO2 07/10/17 08:00 98.2 61 19 101/59 98 07/10/17 05:44 Room Air Intake and Output 07/09/17 07/09/17 07/10/17 15:00 23:00 07:00 Intake Total 140 ml Balance 140 ml Exam Constitutional: alert, oriented Psych: nl mood/affect Head: atraumatic, normocephalic Eyes: nl lids, nl sclera ENMT: mucosa pink and moist, nl nasal mucosa & septum Neck: non-tender, supple Respiratory: normal air movement Cardiovascular: nl pulses, regular rate and rhythm Gastrointestinal: non-tender, soft, No distended Musculoskeletal: nl extremities to inspection, nl gait and stance Extremities: normal pulses Neurological: nl mental status, nl speech, nl strength Skin: rash or lesions Lymph: nl lymph nodes Results Result Diagram: 07/10/17 0206 07/10/17 0206 Results 24 hrs Laboratory Tests Test 07/10/17 01:48 07/10/17 02:06 Urine Color FRANKO Urine Clarity SLIGHTLY CLOUDY A Urine pH 7.0 Urine Specific Stout 1.014 Urine Ketones 1+ H Urine Nitrite NEGATIVE Urine Bilirubin 2+ H Urine Urobilinogen 2+ H Urine Leukocyte Esterase NEGATIVE Urine Microscopic RBC 0 Urine Microscopic WBC 7 H Urine Squamous Epithelial Cells FEW Urine Bacteria FEW A Urine Mucus MANY A Urine Hemoglobin NEGATIVE Urine Glucose NEGATIVE Urine Total Protein NEGATIVE White Blood Count 8.0 Red Blood Count 5.46 H Hemoglobin 14.6 Hematocrit 45.6 Mean Corpuscular Volume 83.5 Mean Corpuscular Hemoglobin 26.7 L Mean Corpuscular Hemoglobin Concent 32.0 Red Cell Distribution Width 13.6 Platelet Count 234 Mean Platelet Volume 10.6 H Neutrophils % 67.9 Lymphocytes % 24.4 Monocytes % 4.4 Eosinophils % 2.2 Basophils % 0.7 Nucleated Red Blood Cells % 0.0 Neutrophils # 5.5 Lymphocytes # 2.0 Monocytes # 0.4 Eosinophils # 0.2 Basophils # 0.1 Nucleated Red Blood Cells # 0.0 Prothrombin Time 12.4 Prothrombin Time Ratio 1.0 INR International Normalized Ratio 0.92 Sodium Level 142 Potassium Level 3.7 Chloride Level 103 Carbon Dioxide Level 31 Anion Gap 12 Blood Urea Nitrogen 6 L Creatinine 0.79 Glucose Level 103 Calcium Level 9.3 Total Bilirubin 2.6 H Direct Bilirubin 1.70 H Indirect Bilirubin 0.9 Aspartate Amino Transf (AST/SGOT) 613 H Alanine Aminotransferase (ALT/SGPT) 855 H Alkaline Phosphatase 288 H Total Protein 7.3 Albumin 4.2 Globulin 3.10 Albumin/Globulin Ratio 1.35 Lipase 109 Medications Medications Current Medications Sodium Chloride (NS) 1,000 ml @ 70 mls/hr [id number] IV Last administered on 07/10 04:30; Admin Dose 70 MLS/HR; Start 07/10/17 at 03:44 Ondansetron HCl (Zofran Inj) 4 mg Q6H PRN IV NAUSEA AND/OR VOMITING; Start 07/10/17 at 04:00 Metoclopramide HCl (Reglan) 10 mg Q6H PRN IV NAUSEA AND/OR VOMITING; Start 07/10/17 at 04:00 Acetaminophen (Tylenol Tab) 650 mg Q6H PRN PO PAIN LEVEL 1-3 OR FEVER; Start 07/10/17 at 04:00 Morphine Sulfate (morphine) 2 mg Q4H PRN IV SEVERE PAIN LEVEL 7-10; Start 07/10 at 04:00 Docusate Sodium (Colace) 100 mg Q12H PRN PO CONSTIPATION; Start 07/10/17 at 04: 00 Zolpidem Tartrate (Ambien) 5 mg QHS PRN PO SLEEP; Start 07/10/17 at 04:00 Famotidine 20 mg 20 mg Q12 IV Last administered on 07/10/17 08:45; Admin Dose 20 MG; Start 07/10/17 at 09:00 Metronidazole 100 ml @ 100 mls/hr Q8 IVPB Last administered on 07/10/17 06:03 ; Admin Dose 100 MLS/HR; Start 07/10/17 at 06:00 Ceftriaxone Sodium (Rocephin) 50 ml @ 100 mls/hr DAILY IVPB Last administered on 07/10/17 08:45; Admin Dose 100 MLS/HR; Start 07/10/17 at 09:00 Influenza Virus Vaccine (Fluzone) 0.5 ml ONCE ONCE IM* ; Start 07/11/17 at 09:00 ; Stop 07/11/17 at 09:01 ELMIRA BUTLER NP Jul 10, 2017 13:07
--- NOTE | 2017-07-10 16:57 | QN ---
Documentation Comment [id number] REID TURNER MD Jul 10, 2017 16:57
--- NOTE | 2017-07-10 18:35 | RADRPT ---
PROCEDURE: MRI abdomen without contrast; MRCP CLINICAL INDICATION: abdominal pain TECHNIQUE: Multiplanar, multisequence imaging of the abdomen was obtained without contrast. Imagi ng includes axial and coronal T2 and T2 fat-saturated images. In addition, a dedicated high T2 signal intensity MRCP images were obtained in multiple planes with 3-D reconstructions. COMPARISON: Ultrasound of the same date and CT 10/02/2016. FINDINGS: MRCP: The gallbladder has numerous layering gallstones present without evidence of visible gallbladder wal l thickening adjacent fat stranding or fluid. There is mild intrahepatic biliary ductal dilatation w ith a mildly dilated common duct as well that measures up to 8 mm in diameter. There is a blunted ap pearance of the distal common duct at the ampulla with no visible rounded filling defect. There is n o pancreatic ductal dilatation. MRI abdomen: There is uniform signal intensity of the liver without evidence of mass. There is a flow void seen within the portal vein without gross evidence for portal vein thrombus. The kidneys are symmetric without hydronephrosis or mass. The adrenal glands are within normal limi ts. The pancreas is uniform without surrounding inflammation. There is no evidence of bowel obstruction or inflammatory changes of the mesentery. The aorta is un remarkable. There are no enlarged lymph nodes. There is no acute osseous abnormality. IMPRESSION: There is cholelithiasis without cholecystitis. There is mild intrahepatic and extrahepatic biliary ductal dilatation with a blunted appearance of t he distal common duct at the ampulla. No filling defect is visible on MRI, however given the enlarge d appearance the biliary ductal system and blunted appearance of the distal duct a stone at the ampu lla is not excluded. This can be correlate with bilirubin levels and ERCP may be considered as clini octavio indicated. No other inflammatory changes are seen within the abdomen. There is no obstruction. RPTAT: AA .Rob Echavarria MD, MD Date Time Electronically viewed and signed by .Rob Echavarria MD, MD on 07/10/2017 18:35 .J/
[2017-07-10 20:00] VITALS: BP 101/57; RESP 19
[2017-07-11] VITALS (23 sets, daily range): BP systolic 90–140; BP diastolic 47–75; PULSE 65–88; RESP 15–20
--- NOTE | 2017-07-11 01:48 | HP ---
DATE OF ADMISSION: 07/10/2017 HISTORY OF PRESENT ILLNESS: The patient is a 21-year-old female with a history of who presented with abdominal pain, noted to have gallstone symptomatic. Hematocrit 45.6, sodium 140, potassium 3.7. AST 613, ALT 855, alk phos 288. Dr. José Mackey has been called to see this patient in consultation. The patient has a contracted gallbladder filled with gallstones. The patient will have MRCP as well as Dr. Lopez has been called. PAST MEDICAL HISTORY: . No diabetes or hypertension. ALLERGIES: NEGATIVE. FAMILY HISTORY: Positive for hypertension. SOCIAL HISTORY: Negative. HOME MEDICATIONS: 1. Ciprofloxacin. 2. Hydrocodone. 3. Ibuprofen. 4. Zofran. 5. Pyridium. 6. vitamins. 7. Ranitidine. REVIEW OF SYSTEMS: HEENT: Normal. RESPIRATORY: Unremarkable. CVS: Unremarkable. ABDOMEN: Epigastric pain. EXTREMITIES: Unremarkable. EDI PROGRAMMER: Unremarkable. PHYSICAL EXAMINATION: GENERAL: The patient is awake and alert with pulse 61, blood pressure 120/58. HEENT: Head is atraumatic and normocephalic. Pupils are equal and reactive to light. NECK: Supple. No JVD. LUNGS: Clear. CVS: S1, S2 normal. ABDOMEN: Soft. Bowel sounds are positive. Tenderness in the epigastrium noted. EXTREMITIES: No cyanosis, clubbing, or edema. EDI PROGRAMMER: The patient is awake and alert with no focal deficits. LABORATORY DATA: As mentioned above. IMPRESSION: 1. Gallstone. 2. abn lft. 3. Rule out common bile duct stone. 4. Clinical cholecystitis. PLAN: Keep her NPO. GI consultation. Surgical consultation. MRCP. The patient is currently on Rocephin, Flagyl. The patient is on Zofran and Reglan, will be continued. Dictated By: Michael Salgado MD /redd/mendoza /Document#: [id number] MTDD
[2017-07-11 05:15] LABS: BASOPHIL # 0.1 10^3/ul (0.0-0.1); BASOPHILS % 0.6 % (0.0-2.0); EOSINOPHILS # 0.2 10^3/ul (0.0-0.5); HEMATOCRIT 42.9 % (37.0-47.0); HEMOGLOBIN 13.4 g/dl (12.0-16.0); LYMPHOCYTES # 2.2 10^3/ul (0.8-2.9); LYMPHOCYTES % 28.2 % (15.0-51.0); MEAN CORPUSCULAR HEMOGLOBIN 26.6 pg (29.0-33.0); MEAN CORPUSCULAR HGB CONC 31.2 g/dl (32.0-37.0); MEAN CORPUSCULAR VOLUME 85.1 fl (82.0-101.0); MEAN PLATELET VOLUME 10.9 fl (7.4-10.4); MONOCYTE # 0.5 10^3/ul (0.3-0.9); MONOCYTES % 6.9 % (0.0-11.0); NEUTROPHIL # 4.8 10^3/ul (1.6-7.5); PLATELET COUNT 205 10^3/UL (140-415); RED BLOOD COUNT 5.04 10^6/ul (4.20-5.40); RED CELL DISTRIBUTION WIDTH 13.6 % (11.5-14.5); WHITE BLOOD COUNT 7.9 10^3/ul (4.8-10.8)
[2017-07-11 05:30] LABS: MAGNESIUM 1.9 mg/dl (1.7-2.5); PHOSPHORUS 3.7 mg/dl (2.5-4.9)
[2017-07-11 05:32] LABS: ALBUMIN 3.6 g/dl (3.3-4.9); ALBUMIN/GLOBULIN RATIO 1.28; BILIRUBIN,INDIRECT 0.5 mg/dl (0-1.1); BILIRUBIN,TOTAL 0.5 mg/dl (0.2-1.3); CALCIUM 8.7 mg/dl (8.4-10.2); CREATININE 0.7 mg/dl (0.44-1.00); POTASSIUM 4.2 mmol/L (3.5-5.1); TOTAL PROTEIN 6.4 g/dl (6.1-8.1)
[2017-07-11] MEDS: metroNIDAZOLE 500 MG/NS (PMX) 100 ML IVPB SCH ×3 (05:41→21:17)
[2017-07-11] MEDS ORDERED: ROCURONIUM 50 MG INJ ONE (07:00)
[2017-07-11] MEDS ORDERED: INFLUENZA VIRUS VACCINE 0.5 ML (DISPENSING) IM* ONE (09:00)
[2017-07-11] MEDS: CEFTRIAXONE 1 GM/50 ML (PMX) 50 ML IVPB SCH (10:01)
[2017-07-11] MEDS: FAMOTIDINE 20 MG INJ IV SCH ×2 (10:01→21:16)
[2017-07-11] MEDS: SOD CHLORIDE 0.9% 1,000 ML IV SCH ×2 (10:02→22:38)
--- NOTE | 2017-07-11 10:46 | PN ---
Date/Time of Note Date/Time of Note DATE: 07/11/17 TIME: 10:44 Assessment/Plan Lines/Catheters IV Catheter Type (from Rust): Peripheral IV Fermin in Place (from Rust): No Assessment/Plan Chief Complaint/Hosp Course 1. Symptomatic Cholelithiasis: with elevated LFT's; improved abdominal pain -pending lap lashawn -npo -pain management -ivf 2. Hyperbilirubinemia: ? choledocholithiasis: MRCP noted; improved -MRCP -gi consult 3. Transaminitis: likely 2/2 above; improving -as above 4. UTI: no dysuria -abx per sensitivity -encourage frequent bladder emptying 5. Severe obesity: -weight management - diet and nutrition optimization Thank you. Patient seen and examined in collaboration with Dr. Brandon Mackey. Problems: Subjective 24 Hr Interval Summary Feels well. No c/o abdominal pain/discomfort. Pending lap lashawn today. No fevers , chills, sob, congested cough, hou, dizziness, cp, palpitations, n/v/d/dysuria. Exam/Review of Systems Vital Signs Vitals Vital Signs Date Time Temp Pulse Resp B/P Pulse Ox O2 Delivery O2 Flow Rate FiO2 07/11/17 07:46 97.9 57 18 90/54 97 07/10/17 05:44 Room Air Intake and Output 07/10/17 07/10/17 07/11/17 15:00 23:00 07:00 Intake Total 250 ml 800 ml 630 ml Balance 250 ml 800 ml 630 ml Exam Free Text/Dictation Constitutional: alert, oriented Psych: nl mood/affect Head: atraumatic, normocephalic Eyes: nl lids, nl sclera ENMT: mucosa pink and moist, nl nasal mucosa & septum Neck: non-tender, supple Respiratory: normal air movement Cardiovascular: nl pulses, regular rate and rhythm Gastrointestinal: non-tender, soft, No distended Musculoskeletal: nl extremities to inspection, nl gait and stance Extremities: normal pulses Neurological: nl mental status, nl speech, nl strength Skin: rash or lesions Lymph: nl lymph nodes Results Result Diagram: 07/11/17 0453 07/11/17 0453 ELMIRA BUTLER NP Jul 11, 2017 10:46
--- NOTE | 2017-07-11 12:36 | RADRPT ---
PROCEDURE: XR Chest. CLINICAL INDICATION: Preoperative. TECHNIQUE: Single frontal view. COMPARISON: None. FINDINGS: The lungs are clear. The heart size is normal. There is no pleural effusion. There is no pneumothorax. IMPRESSION: 1. Normal chest radiograph. RPTAT: QQ .Dao Reynolds MD, Date Time Electronically viewed and signed by .Dao Reynolds MD, on 07/11/2017 12:35 .R/
--- NOTE | 2017-07-11 15:26 | CONS ---
DATE OF ADMISSION: 07/10/2017 DATE OF CONSULTATION: 07/11/2017 REFERRING PHYSICIAN: Michael Salgado MD HISTORY OF PRESENT ILLNESS: The patient is a 21-year-old female with a history of , who comes to the hospital with abdominal pain confined to the right upper quadrant. The patient was seen by the surgeon. Laparoscopic cholecystectomy is scheduled, however, patient's liver functions were abnormal, so MRCP was done which showed dilated bile duct, but there is no obstruction. Again, the stone in the ampullary area cannot be absolutely ruled out. But the patient on states the pain has completely disappeared. No nausea, no vomiting. No fever, no chills. PAST MEDICAL HISTORY: Negative except for . ALLERGIES: NEGATIVE. SOCIAL HISTORY: Negative. MEDICATION: Medications all reviewed. PHYSICAL EXAMINATION: VITAL SIGNS: Stable. HEENT: Unremarkable. NECK: Supple. No thyromegaly. No lymphadenopathy. HEART: No murmur, gallop, or click. LUNGS: Clear. ABDOMEN: Benign. EXTREMITIES: No edema. NEUROLOGIC: Grossly within normal limits. LABORATORY: CBC stable. LFT shows total bilirubin which was 2.6 yesterday, dropped down to 0.5. SGOT is from 613, dropped down to 153. Alkaline phosphatase from 288, dropped down 229. So based on her liver function study. IMPRESSION: 1. Gallstones. 2. Dilated bile duct. Patient may have passed the stone. 3. Abnormal liver function tests which is coming down repeatedly and patient is asymptomatic now indicating that patient may have passed the stone. PLAN: Proceed with the lap lashawn. I have requested Dr. Mackey to do an intraoperative cholangiogram. If there is the stone then we will take it out through ERCP. I have discussed with the patient. She understood and has agreed. Dictated By: Darien Martínez MD /redd/kelsey /Document#: [id number]
[2017-07-11] MEDS ORDERED: HYDROmorphONE (0.2 MG/ML) 10ML SYG IV PRN ×3 (16:00)
[2017-07-11] MEDS ORDERED: DIPHENHYDRAMINE 50 MG INJ IV PRN (16:00)
[2017-07-11] MEDS ORDERED: LABETALOL HCL 20MG INJ IV PRN (16:00)
[2017-07-11] MEDS ORDERED: METOCLOPRAMIDE 10 MG INJ IV PRN (16:00)
[2017-07-11] MEDS ORDERED: MEPERIDINE 25 MG INJ IV PRN (16:00)
[2017-07-11] MEDS ORDERED: KETOROLAC 30 MG INJ IV PRN (16:00)
[2017-07-11] MEDS ORDERED: hydrALAzine 20 MG INJ IV PRN (16:00)
[2017-07-11] MEDS ORDERED: FENTAnyl 50 MCG/ML VIAL IV PRN ×2 (16:00)
[2017-07-11] MEDS ORDERED: EPHEDrine SULFATE 50 MG/5 ML SYG IV PRN (16:00)
[2017-07-11] MEDS ORDERED: ONDANSETRON 4 MG INJ IV PRN (16:00)
[2017-07-11] MEDS ORDERED: OXYCODONE/ACETAMINOPHEN (5/325) TAB PO PRN ×2 (16:00)
[2017-07-11] MEDS ORDERED: LIDOCAINE 1% (STERILE-PAK) 30 ML INJ ONE (16:03)
[2017-07-11] MEDS ORDERED: PROPOFOL 100 ML ONE (16:04)
[2017-07-11] MEDS ORDERED: BUPIVACAINE 0.5%/EPI (SDV) 30 ML INJ ONE (16:04)
[2017-07-11] MEDS ORDERED: DEXAMETHASONE 4 MG/ML 1 ML INJ ONE (16:22)
[2017-07-11] MEDS ORDERED: ONDANSETRON 4 MG INJ ONE (16:23)
[2017-07-11] MEDS ORDERED: IOHEXOL 300MG/ML 30 ML BTL ONE (16:52)
--- NOTE | 2017-07-11 17:52 | OPR ---
Date/Time of Note Date/Time of Note DATE: 07/11/17 TIME: 17:52 Operative Report Procedure Date: Jul 11, 2017 Preoperative Diagnosis Per below Postoperative Diagnosis Per below Production Control Supervisor Per below Anesthesia Type: general Estimated Blood Loss: 0 - 10 ml's Transfusion none Specimen Per notes Grafts/Implants none Complications none Procedure Description Preoperative Diagnosis: Symptomatic cholelithiasis Transaminitis Possible choledocholithiasis Hyperbilirubinemia Abnormal liver BMI 36 Postoperative Diagnosis: Symptomatic cholelithiasis Transaminitis Hyperbilirubinemia Abnormal liver color BMI 36 Operation(s) Performed: 1. 3 port laparoscopic cholecystectomy 2. Laparoscopic liver wedge resection biopsy 3. Laparoscopic intra-operative cholangiogram 4. Local anesthetic [place], [id number] 5. Laparoscopic bilateral transversus abdominis plane block Surgeon: LEATHA RUST MD Production Control Supervisor: Miguelina Oquendo NP Anesthesia: general, local, & regional Anesthesiologist: Sp Catalan MD Estimated Blood Loss: 0 - 10 ml's Specimens: Liver Gallbladder Tubes/Drains: 15 f kyleigh Complications: None Pt Condition Post Procedure: stable Disposition: PACU Indications: 21-year-old female with gallstones and abdominal pain here for cholecystectomy. Risks include but are not limited to bleeding, infection, abscess, seroma, damage to intestines, damage to the liver, damage to biliary tree, hernia formation, chronic pain, biloma, need for reoperations or further surgeries, [place] , stroke, PE, DVT, pneumonia, organ failures, or even . Procedure Description: Patient was brought and placed supine on the operating table SCDs were placed, preoperative antibiotics were administered, all pressure points were well-padded , and after induction of anesthesia patient was prepped and draped in usual sterile fashion and timeout was performed. Incision was made in the supraumbilical region, Veress was safely inserted, and after a negative SIP test , abdomen was insufflated to 15mmHg. Veress was removed and 5mm port was safely inserted. Laparoscopy was performed with a 5 mm 30 scope. No injuries were identified. The liver looks somewhat abnormal color. Gallbladder is without evidence of infection. 12 mm port is placed in subxiphoid under direct visualization followed by another 5 mm port in the right upper quadrant. All port sites were injected with quarter percent Marcaine with epi and 1% lidocaine prior to any incisions. Bilateral transversus abdominis plane block was performed under laparoscopic visualization to aid with pain control intra-and postoperatively. Patient was placed in reverse Trendelenburg and right side up on gallbladder was retracted superolaterally. Using electrocautery and blunt dissection I was able to identify the cystic artery and cystic duct. The duct was dilated but tapered into the gallbladder. Full critical angle view was identified. Artery was clipped twice proximally and once distally and transected. Cystotomy was created cholangiogram catheter inserted and cholangiography performed. No filling defects identified. The tree was identified. Small bowel is identified. The gallbladder was taken off the liver with electrocautery. Hemostasis was obtained. Gallbladder was placed in an Endo Catch bag and removed through the subxiphoid port site. There was complete hemostasis. There was leakage of bile and stones which were immediately suctioned out and the stones are removed. Due to the abnormality of the liver decision was made to perform liver wedge resection which was done with electrocautery and scissor with complete hemostasis right after. The specimen was sent to pathology for further evaluation. 15F kyleigh drain was placed through lateral incision to drain the liver and gb sites. 12 mm made port site fascia was closed with Endo Close of an 0 Vicryl in a [id number] manner. Ports and CO2 were removed under direct visualization. Next complete hemostasis. Wounds were thoroughly irrigated skin was closed with 4-0 Monocryl in subcuticular fashion. Dermabond was applied. Patient was extubated and transferred to recovery room in stable condition and all counts were correct and the end of the operation 2. LEATHA RUST MD Jul 11, 2017 17:52
--- NOTE | 2017-07-11 17:55 | RADRPT ---
PROCEDURE: X-ray cholangiogram in surgery CLINICAL INDICATION: Cholecystectomy TECHNIQUE: Intraoperative cholangiogram was performed. Fluoro time: 0.0 minutes Number of images/sequences: 4 COMPARISON: MRCP of 07/10/2017 FINDINGS: The cutter and edge trimmer radiograph demonstrates pneumoperitoneum and endotracheal tube and surgical clips in the r ight upper quadrant of the abdomen. On the first radiograph after injection of contrast injection, c ontrast is seen in the cystic duct and small amount of contrast is seen in the peritoneal cavity. No definite dilatation of extrahepatic or visualized opacified intrahepatic bile ducts is seen. No nesha ling defects suggestive of choledocholithiasis is seen. Contrast is seen in the duodenum consistent with patency of the distal common bile duct. IMPRESSION: No definite biliary dilatation or choledocholithiasis seen. Please see above. Please refer to operat mart report. RPTAT: HJES .Harrison Nieto MD, Date Time Electronically viewed and signed by .Harrison Nieto MD, on 07/11/2017 17:55 .S/
[2017-07-11] MEDS: FENTAnyl 50 MCG/ML VIAL IV PRN ×2 (18:34→18:42)
--- NOTE | 2017-07-11 19:04 | PN ---
Date/Time of Note Date/Time of Note DATE: 07/11/17 TIME: 19:03 Assessment/Plan VTE Prophylaxis VTE Prophylaxis Intervention: other Lines/Catheters IV Catheter Type (from Rust): Peripheral IV Urinary Cath still in place: No Assessment/Plan Chief Complaint/Hosp Course IMPRESSION: 1. Gallstone. 2. abn lft. 3. Rule out common bile duct stone. 4. Clinical cholecystitis. plan per surgery Problems: Subjective 24 Hr Interval Summary Gastrointestinal: other (abd pain better) Exam/Review of Systems Vital Signs Vitals Vital Signs Date Time Temp Pulse Resp B/P Pulse Ox O2 Delivery O2 Flow Rate FiO2 07/11/17 18:37 72 17 116/65 100 Nasal Cannula 2.0 07/11/17 18:08 98.0 Intake and Output 07/10/17 07/10/17 07/11/17 15:00 23:00 07:00 Intake Total 250 ml 800 ml 630 ml Balance 250 ml 800 ml 630 ml Exam Neck: supple Respiratory: clear to auscultation Cardiovascular: regular rate and rhythm Gastrointestinal: bowel sounds (+), soft Extremities: normal pulses Results Result Diagram: 07/11/17 0453 07/11/17 0453 Results 24 hrs Laboratory Tests Test 07/11/17 04:53 White Blood Count 7.9 Red Blood Count 5.04 Hemoglobin 13.4 Hematocrit 42.9 Mean Corpuscular Volume 85.1 Mean Corpuscular Hemoglobin 26.6 L Mean Corpuscular Hemoglobin Concent 31.2 L Red Cell Distribution Width 13.6 Platelet Count 205 Mean Platelet Volume 10.9 H Neutrophils % 61.0 Lymphocytes % 28.2 Monocytes % 6.9 Eosinophils % 3.0 Basophils % 0.6 Nucleated Red Blood Cells % 0.0 Neutrophils # 4.8 Lymphocytes # 2.2 Monocytes # 0.5 Eosinophils # 0.2 Basophils # 0.1 Nucleated Red Blood Cells # 0.0 Sodium Level 139 Potassium Level 4.2 Chloride Level 107 Carbon Dioxide Level 22 Anion Gap 14 Blood Urea Nitrogen 6 L Creatinine 0.70 Glucose Level 64 #L Calcium Level 8.7 Phosphorus Level 3.7 Magnesium Level 1.9 Total Bilirubin 0.5 # Direct Bilirubin 0.00 # Indirect Bilirubin 0.5 Aspartate Amino Transf (AST/SGOT) 153 H Alanine Aminotransferase (ALT/SGPT) 502 H Alkaline Phosphatase 229 H Total Protein 6.4 Albumin 3.6 Globulin 2.80 Albumin/Globulin Ratio 1.28 Amylase Level 47 Medications Medications Current Medications Sodium Chloride (NS) 1,000 ml @ 70 mls/hr [id number] IV Last administered on 07/11 10:02; Admin Dose 70 MLS/HR; Start 07/10/17 at 03:44 Ondansetron HCl (Zofran Inj) 4 mg Q6H PRN IV NAUSEA AND/OR VOMITING; Start 07/10/17 at 04:00 Metoclopramide HCl (Reglan) 10 mg Q6H PRN IV NAUSEA AND/OR VOMITING Last administered on 07/11/17 18:34; Admin Dose 10 MG; Start 07/10/17 at 04:00 Acetaminophen (Tylenol Tab) 650 mg Q6H PRN PO PAIN LEVEL 1-3 OR FEVER; Start 07/10/17 at 04:00 Morphine Sulfate (morphine) 2 mg Q4H PRN IV SEVERE PAIN LEVEL 7-10; Start 07/10 at 04:00 Docusate Sodium (Colace) 100 mg Q12H PRN PO CONSTIPATION; Start 07/10/17 at 04: 00 Zolpidem Tartrate (Ambien) 5 mg QHS PRN PO SLEEP; Start 07/10/17 at 04:00 Famotidine 20 mg 20 mg Q12 IV Last administered on 07/11/17 10:01; Admin Dose 20 MG; Start 07/10/17 at 09:00 Metronidazole 100 ml @ 100 mls/hr Q8 IVPB Last administered on 07/11/17 05:41 ; Admin Dose 100 MLS/HR; Start 07/10/17 at 06:00 Ceftriaxone Sodium (Rocephin) 50 ml @ 100 mls/hr DAILY IVPB Last administered on 07/11/17 10:01; Admin Dose 100 MLS/HR; Start 07/10/17 at 09:00 REID TURNER MD Jul 11, 2017 19:04
[2017-07-11] MEDS: KETOROLAC 30 MG INJ IV PRN (21:39)
[2017-07-12] MEDS: morphine 2 MG INJ IV PRN ×4 (00:07→19:52)
[2017-07-12] MEDS: SOD CHLORIDE 0.9% 1,000 ML IV SCH ×3 (04:43→23:43)
[2017-07-12 05:22] LABS: BASOPHILS % 0.3 % (0.0-2.0); EOSINOPHILS % 0.1 % (0.0-7.0); HEMATOCRIT 46.2 % (37.0-47.0); HEMOGLOBIN 14.4 g/dl (12.0-16.0); LYMPHOCYTES # 1.3 10^3/ul (0.8-2.9); LYMPHOCYTES % 12.2 % (15.0-51.0); MEAN CORPUSCULAR HGB CONC 31.2 g/dl (32.0-37.0); MEAN CORPUSCULAR VOLUME 83.4 fl (82.0-101.0); MEAN PLATELET VOLUME 10.9 fl (7.4-10.4); MONOCYTE # 0.5 10^3/ul (0.3-0.9); MONOCYTES % 4.9 % (0.0-11.0); NEUTROPHIL # 8.7 10^3/ul (1.6-7.5); NEUTROPHILS % 82.1 % (39.0-77.0); PLATELET COUNT 230 10^3/UL (140-415); RED BLOOD COUNT 5.54 10^6/ul (4.20-5.40); RED CELL DISTRIBUTION WIDTH 13.2 % (11.5-14.5); WHITE BLOOD COUNT 10.6 10^3/ul (4.8-10.8)
[2017-07-12 05:41] LABS: ALBUMIN 3.8 g/dl (3.3-4.9); ALBUMIN/GLOBULIN RATIO 1.08; BILIRUBIN,INDIRECT 0.2 mg/dl (0-1.1); BILIRUBIN,TOTAL 0.2 mg/dl (0.2-1.3); CREATININE 0.62 mg/dl (0.44-1.00); POTASSIUM 4.3 mmol/L (3.5-5.1); TOTAL PROTEIN 7.3 g/dl (6.1-8.1)
[2017-07-12] MEDS: metroNIDAZOLE 500 MG/NS (PMX) 100 ML IVPB SCH ×3 (06:15→23:42)
[2017-07-12 08:00] VITALS: BP 105/60; RESP 18
[2017-07-12] MEDS: KETOROLAC 30 MG INJ IV PRN ×2 (09:20→19:49)
[2017-07-12] MEDS: FAMOTIDINE 20 MG INJ IV SCH ×2 (09:21→20:47)
[2017-07-12] MEDS: CEFTRIAXONE 1 GM/50 ML (PMX) 50 ML IVPB SCH (09:21)
--- NOTE | 2017-07-12 11:47 | CONS ---
Date/Time of Note Date/Time of Note DATE: 07/12/17 TIME: 11:46 Assessment/Plan Assessment/Plan Additional Assessment/Plan IMPRESSION: 1. Gallstones. 2. Dilated bile duct. Patient may have passed the stone. 3. Abnormal liver function tests which is coming down and patient is asymptomatic now indicating that patient may have passed the stone. Patient's intraoperative cholangiogram was negative for any obstruction bile duct stone Plan Continue postop care Consultation Date/Type/Reason Admit Date/Time Jul 10, 2017 at 03:34 Initial Consult Date 07/10/17 Type of Consultation: Surgical 24 HR Interval Summary Constitutional: improved Exam/Review of Systems Vital Signs Vitals Vital Signs Date Time Temp Pulse Resp B/P Pulse Ox O2 Delivery O2 Flow Rate FiO2 07/12/17 08:00 98.1 66 18 105/60 96 07/11/17 22:20 Room Air 07/11/17 20:19 1.0 Intake and Output 07/11/17 07/11/17 07/12/17 15:00 23:00 07:00 Intake Total 100 ml 1325 ml 1340 ml Output Total 50 ml 1250 ml Balance 100 ml 1275 ml 90 ml Exam Constitutional: alert, oriented, well developed Psych: nl mood/affect, no complaints Head: atraumatic, normocephalic Eyes: EOMI, PERRL, nl conjunctiva, nl lids, nl sclera ENMT: nl external ears & nose, nl lips & teeth, nl nasal mucosa & septum Neck: non-tender, supple Respiratory: clear to auscultation, normal air movement Cardiovascular: nl pulses, regular rate and rhythm Gastrointestinal: nl liver, spleen, non-tender, soft Musculoskeletal: nl extremities to inspection, nl gait and stance Extremities: normal pulses Neurological: CURATOR II-XII intact, nl mental status, nl speech, nl strength Skin: nl turgor, No rash or lesions Lymph: nl lymph nodes Results Result Diagram: 07/12/17 0443 07/12/173 Results 24 hrs Laboratory Tests Test 07/12/17 04:43 White Blood Count 10.6 # Red Blood Count 5.54 H Hemoglobin 14.4 Hematocrit 46.2 Mean Corpuscular Volume 83.4 Mean Corpuscular Hemoglobin 26.0 L Mean Corpuscular Hemoglobin Concent 31.2 L Red Cell Distribution Width 13.2 Platelet Count 230 Mean Platelet Volume 10.9 H Neutrophils % 82.1 H Lymphocytes % 12.2 L Monocytes % 4.9 Eosinophils % 0.1 Basophils % 0.3 Nucleated Red Blood Cells % 0.0 Neutrophils # 8.7 H Lymphocytes # 1.3 Monocytes # 0.5 Eosinophils # 0.0 Basophils # 0.0 Nucleated Red Blood Cells # 0.0 Sodium Level 136 Potassium Level 4.3 Chloride Level 105 Carbon Dioxide Level 21 Anion Gap 14 Blood Urea Nitrogen 4 L Creatinine 0.62 Glucose Level 102 Calcium Level 9.0 Total Bilirubin 0.2 Direct Bilirubin 0.00 Indirect Bilirubin 0.2 Aspartate Amino Transf (AST/SGOT) 119 H Alanine Aminotransferase (ALT/SGPT) 438 H Alkaline Phosphatase 247 H Total Protein 7.3 Albumin 3.8 Globulin 3.50 H Albumin/Globulin Ratio 1.08 Medications Medications Current Medications Sodium Chloride (NS) 1,000 ml @ 70 mls/hr [id number] IV Last administered on 07/12 04:43; Admin Dose 70 MLS/HR; Start 07/10/17 at 03:44 Ondansetron HCl (Zofran Inj) 4 mg Q6H PRN IV NAUSEA AND/OR VOMITING; Start 07/10/17 at 04:00 Metoclopramide HCl (Reglan) 10 mg Q6H PRN IV NAUSEA AND/OR VOMITING Last administered on 07/11/17 18:34; Admin Dose 10 MG; Start 07/10/17 at 04:00 Acetaminophen (Tylenol Tab) 650 mg Q6H PRN PO PAIN LEVEL 1-3 OR FEVER; Start 07/10/17 at 04:00 Morphine Sulfate (morphine) 2 mg Q4H PRN IV SEVERE PAIN LEVEL 7-10 Last administered on 07/12/17 09:30; Admin Dose 2 MG; Start 07/10/17 at 04:00 Docusate Sodium (Colace) 100 mg Q12H PRN PO CONSTIPATION; Start 07/10/17 at 04: 00 Zolpidem Tartrate (Ambien) 5 mg QHS PRN PO SLEEP; Start 07/10/17 at 04:00 Famotidine 20 mg 20 mg Q12 IV Last administered on 07/12/17 09:21; Admin Dose 20 MG; Start 07/10/17 at 09:00 Metronidazole 100 ml @ 100 mls/hr Q8 IVPB Last administered on 07/12/17 06:15 ; Admin Dose 100 MLS/HR; Start 07/10/17 at 06:00 Ceftriaxone Sodium (Rocephin) 50 ml @ 100 mls/hr DAILY IVPB Last administered on 07/12/17 09:21; Admin Dose 100 MLS/HR; Start 07/10/17 at 09:00 Ketorolac Tromethamine (Toradol) 30 mg Q8H PRN IV PAIN Last administered on 09:20; Admin Dose 30 MG; Start 07/11/17 at 21:30; Stop 07/14/17 at 21:29 MAKAYLA RESENDIZ MD Jul 12, 2017 11:47
--- NOTE | 2017-07-12 12:24 | PN ---
Date/Time of Note Date/Time of Note DATE: 07/12/17 TIME: 12:23 Assessment/Plan VTE Prophylaxis VTE Prophylaxis Intervention: other Lines/Catheters IV C[facility]ter Type (from [email or web address] Peripheral IV Urinary Cath still in place: No Assessment/Plan Chief Complaint/Hosp Course IMPRESSION: 1. Gallstone.s/p lap lashawn 2. abn lft. 3. Rule out common bile duct stone. 4. Clinical cholecystitis. plan per surgery cklabs Problems: Subjective 24 Hr Interval Summary Cardiovascular: no complaints Gastrointestinal: pain (+), No diarrhea, No nausea Exam/Review of Systems Vital Signs Vitals Vital Signs Date Time Temp Pulse Resp B/P Pulse Ox O2 Delivery O2 Flow Rate FiO2 07/12/17 08:00 98.1 66 18 105/60 96 07/11/17 22:20 Room Air 07/11/17 20:19 1.0 Intake and Output 07/11/17 07/11/17 07/12/17 15:00 23:00 07:00 Intake Total 100 ml 1325 ml 1340 ml Output Total 50 ml 1250 ml Balance 100 ml 1275 ml 90 ml Exam Neck: supple Respiratory: clear to auscultation Cardiovascular: regular rate and rhythm Gastrointestinal: bowel sounds (+), tender (+) Results Result Diagram: 07/12/1744207/12/17 0443 Results 24 hrs Laboratory Tests Test 07/12/17 04:43 White Blood Count 10.6 # Red Blood Count 5.54 H Hemoglobin 14.4 Hematocrit 46.2 Mean Corpuscular Volume 83.4 Mean Corpuscular Hemoglobin 26.0 L Mean Corpuscular Hemoglobin Concent 31.2 L Red Cell Distribution Width 13.2 Platelet Count 230 Mean Platelet Volume 10.9 H Neutrophils % 82.1 H Lymphocytes % 12.2 L Monocytes % 4.9 Eosinophils % 0.1 Basophils % 0.3 Nucleated Red Blood Cells % 0.0 Neutrophils # 8.7 H Lymphocytes # 1.3 Monocytes # 0.5 Eosinophils # 0.0 Basophils # 0.0 Nucleated Red Blood Cells # 0.0 Sodium Level 136 Potassium Level 4.3 Chloride Level 105 Carbon Dioxide Level 21 Anion Gap 14 Blood Urea Nitrogen 4 L Creatinine 0.62 Glucose Level 102 Calcium Level 9.0 Total Bilirubin 0.2 Direct Bilirubin 0.00 Indirect Bilirubin 0.2 Aspartate Amino Transf (AST/SGOT) 119 H Alanine Aminotransferase (ALT/SGPT) 438 H Alkaline Phosphatase 247 H Total Protein 7.3 Albumin 3.8 Globulin 3.50 H Albumin/Globulin Ratio 1.08 Medications Medications Current Medications Sodium Chloride (NS) 1,000 ml @ 70 mls/hr [id number] IV Last administered on 07/12 04:43; Admin Dose 70 MLS/HR; Start 07/10/17 at 03:44 Ondansetron HCl (Zofran Inj) 4 mg Q6H PRN IV NAUSEA AND/OR VOMITING; Start 07/10/17 at 04:00 Metoclopramide HCl (Reglan) 10 mg Q6H PRN IV NAUSEA AND/OR VOMITING Last administered on 07/11/17 18:34; Admin Dose 10 MG; Start 07/10/17 at 04:00 Acetaminophen (Tylenol Tab) 650 mg Q6H PRN PO PAIN LEVEL 1-3 OR FEVER; Start 07/10/17 at 04:00 Morphine Sulfate (morphine) 2 mg Q4H PRN IV SEVERE PAIN LEVEL 7-10 Last administered on 07/12/17 09:30; Admin Dose 2 MG; Start 07/10/17 at 04:00 Docusate Sodium (Colace) 100 mg Q12H PRN PO CONSTIPATION; Start 07/10/17 at 04: 00 Zolpidem Tartrate (Ambien) 5 mg QHS PRN PO SLEEP; Start 07/10/17 at 04:00 Famotidine 20 mg 20 mg Q12 IV Last administered on 07/12/17 09:21; Admin Dose 20 MG; Start 07/10/17 at 09:00 Metronidazole 100 ml @ 100 mls/hr Q8 IVPB Last administered on 07/12/17 06:15 ; Admin Dose 100 MLS/HR; Start 07/10/17 at 06:00 Ceftriaxone Sodium (Rocephin) 50 ml @ 100 mls/hr DAILY IVPB Last administered on 07/12/17 09:21; Admin Dose 100 MLS/HR; Start 07/10/17 at 09:00 Ketorolac Tromethamine (Toradol) 30 mg Q8H PRN IV PAIN Last administered on 09:20; Admin Dose 30 MG; Start 07/11/17 at 21:30; Stop 07/14/17 at 21:29 REID TURNER MD Jul 12, 2017 12:24
[2017-07-12 12:29] VITALS: BP 114/65; RESP 18
[2017-07-12 21:46] VITALS: BP 117/70; RESP 18
--- NOTE | 2017-07-12 23:38 | PN ---
Date/Time of Note Date/Time of Note DATE: 07/12/17 TIME: 23:38 Assessment/Plan Lines/Catheters IV Catheter Type (from [facility]): Peripheral IV Fermin in Place (from [facility]): No Exam/Review of Systems Vital Signs Vitals Vital Signs Date Time Temp Pulse Resp B/P Pulse Ox O2 Delivery O2 Flow Rate FiO2 07/12/17 21:46 98.2 61 18 117/70 97 07/11/17 22:20 Room Air 07/11/17 20:19 1.0 Intake and Output 07/11/17 07/11/17 07/12/17 15:00 23:00 07:00 Intake Total 100 ml 1325 ml 1340 ml Output Total 50 ml 1250 ml Balance 100 ml 1275 ml 90 ml Results Result Diagram: 07/12/17 0443 07/12/17 0443 LEATHA RUST MD Jul 12, 2017 23:38
[2017-07-13 02:30] VITALS: BP 100/55; RESP 20
[2017-07-13 05:21] LABS: BASOPHILS % 0.3 % (0.0-2.0); EOSINOPHILS # 0.1 10^3/ul (0.0-0.5); EOSINOPHILS % 1.2 % (0.0-7.0); HEMATOCRIT 39.8 % (37.0-47.0); HEMOGLOBIN 12.8 g/dl (12.0-16.0); LYMPHOCYTES # 3.1 10^3/ul (0.8-2.9); LYMPHOCYTES % 34.6 % (15.0-51.0); MEAN CORPUSCULAR HEMOGLOBIN 26.7 pg (29.0-33.0); MEAN CORPUSCULAR HGB CONC 32.2 g/dl (32.0-37.0); MEAN CORPUSCULAR VOLUME 83.1 fl (82.0-101.0); MEAN PLATELET VOLUME 10.9 fl (7.4-10.4); MONOCYTE # 0.7 10^3/ul (0.3-0.9); MONOCYTES % 7.8 % (0.0-11.0); NEUTROPHIL # 5.1 10^3/ul (1.6-7.5); PLATELET COUNT 180 10^3/UL (140-415); RED BLOOD COUNT 4.79 10^6/ul (4.20-5.40); RED CELL DISTRIBUTION WIDTH 13.7 % (11.5-14.5); WHITE BLOOD COUNT 9.1 10^3/ul (4.8-10.8)
[2017-07-13 05:43] LABS: ALBUMIN 3.1 g/dl (3.3-4.9); ALBUMIN/GLOBULIN RATIO 1.03; BILIRUBIN,INDIRECT 0.1 mg/dl (0-1.1); BILIRUBIN,TOTAL 0.1 mg/dl (0.2-1.3); CALCIUM 8.3 mg/dl (8.4-10.2); CREATININE 0.61 mg/dl (0.44-1.00); POTASSIUM 3.2 mmol/L (3.5-5.1); TOTAL PROTEIN 6.1 g/dl (6.1-8.1)
[2017-07-13 07:38] VITALS: BP 120/74; RESP 19
[2017-07-13] MEDS: morphine 2 MG INJ IV PRN (08:01)
[2017-07-13] MEDS: metroNIDAZOLE 500 MG/NS (PMX) 100 ML IVPB SCH ×3 (08:27→23:12)
[2017-07-13] MEDS: CEFTRIAXONE 1 GM/50 ML (PMX) 50 ML IVPB SCH (09:11)
[2017-07-13] MEDS: FAMOTIDINE 20 MG TAB PO SCH ×2 (09:11→21:03)
--- NOTE | 2017-07-13 11:31 | CONS ---
Date/Time of Note Date/Time of Note DATE: 07/13/17 TIME: 11:30 Assessment/Plan Assessment/Plan Additional Assessment/Plan Additional Assessment/Plan IMPRESSION: 1. Gallstones. 2. Dilated bile duct. Patient may have passed the stone. 3. Abnormal liver function tests which is coming down and patient is asymptomatic now indicating that patient may have passed the stone. Patient's intraoperative cholangiogram was negative for any obstruction bile duct stone 4. Status post cholecystectomy and a SCARLETT drain Plan Continue postop care Pain management Consultation Date/Type/Reason Admit Date/Time Jul 10, 2017 at 03:34 Initial Consult Date 07/10/17 Type of Consultation: Surgical 24 HR Interval Summary Free Text/Dictation Some complaints of incisional pain Exam/Review of Systems Vital Signs Vitals Vital Signs Date Time Temp Pulse Resp B/P Pulse Ox O2 Delivery O2 Flow Rate FiO2 07/13/17 07:38 98.0 85 19 120/74 97 07/11/17 22:20 Room Air 07/11/17 20:19 1.0 Intake and Output 07/12/17 07/12/17 07/13/17 15:00 23:00 07:00 Intake Total 100 ml 1350 ml 500 ml Output Total 40 ml 2000 ml Balance 100 ml 1310 ml -1500 ml Exam Constitutional: alert, oriented, well developed Psych: nl mood/affect, no complaints Head: atraumatic, normocephalic Eyes: EOMI, PERRL, nl conjunctiva, nl lids, nl sclera ENMT: nl external ears & nose, nl lips & teeth, nl nasal mucosa & septum Neck: non-tender, supple Respiratory: clear to auscultation, normal air movement Cardiovascular: nl pulses, regular rate and rhythm Gastrointestinal: nl liver, spleen, non-tender, soft Musculoskeletal: nl extremities to inspection, nl gait and stance Extremities: normal pulses Neurological: CONSERVATION AGENT II-XII intact, nl mental status, nl speech, nl strength Skin: nl turgor, No rash or lesions Lymph: nl lymph nodes Results Result Diagram: 07/13/17 0434 07/13/17 0400 Results 24 hrs Laboratory Tests Test 07/13/17 04:00 07/13/17 04:34 Sodium Level 139 Potassium Level 3.2 L Chloride Level 106 Carbon Dioxide Level 27 Anion Gap 9 # Blood Urea Nitrogen 4 L Creatinine 0.61 Glucose Level 84 Calcium Level 8.3 L Total Bilirubin 0.1 L Direct Bilirubin 0.00 Indirect Bilirubin 0.1 Aspartate Amino Transf (AST/SGOT) 102 H Alanine Aminotransferase (ALT/SGPT) 288 H Alkaline Phosphatase 177 H Total Protein 6.1 # Albumin 3.1 L Globulin 3.00 Albumin/Globulin Ratio 1.03 White Blood Count 9.1 Red Blood Count 4.79 Hemoglobin 12.8 Hematocrit 39.8 Mean Corpuscular Volume 83.1 Mean Corpuscular Hemoglobin 26.7 L Mean Corpuscular Hemoglobin Concent 32.2 Red Cell Distribution Width 13.7 Platelet Count 180 # Mean Platelet Volume 10.9 H Neutrophils % 56.0 Lymphocytes % 34.6 Monocytes % 7.8 Eosinophils % 1.2 Basophils % 0.3 Nucleated Red Blood Cells % 0.0 Neutrophils # 5.1 Lymphocytes # 3.1 H Monocytes # 0.7 Eosinophils # 0.1 Basophils # 0.0 Nucleated Red Blood Cells # 0.0 Medications Medications Current Medications Sodium Chloride (NS) 1,000 ml @ 70 mls/hr [id number] IV Last administered on 07/12 23:43; Admin Dose 70 MLS/HR; Start 07/10/17 at 03:44 Ondansetron HCl (Zofran Inj) 4 mg Q6H PRN IV NAUSEA AND/OR VOMITING; Start 07/10/17 at 04:00 Metoclopramide HCl (Reglan) 10 mg Q6H PRN IV NAUSEA AND/OR VOMITING Last administered on 07/11/17 18:34; Admin Dose 10 MG; Start 07/10/17 at 04:00 Acetaminophen (Tylenol Tab) 650 mg Q6H PRN PO PAIN LEVEL 1-3 OR FEVER; Start 07/10/17 at 04:00 Morphine Sulfate (morphine) 2 mg Q4H PRN IV SEVERE PAIN LEVEL 7-10 Last administered on 07/13/17 08:01; Admin Dose 2 MG; Start 07/10/17 at 04:00 Docusate Sodium (Colace) 100 mg Q12H PRN PO CONSTIPATION; Start 07/10/17 at 04: 00 Zolpidem Tartrate 5 mg 5 mg QHS PRN PO SLEEP; Start 07/10/17 at 04:00 Metronidazole 100 ml @ 100 mls/hr Q8 IVPB Last administered on 07/13/17 08:27 ; Admin Dose 100 MLS/HR; Start 07/10/17 at 06:00 Ceftriaxone Sodium (Rocephin) 50 ml @ 100 mls/hr DAILY IVPB Last administered on 07/13/17 09:11; Admin Dose 100 MLS/HR; Start 07/10/17 at 09:00 Ketorolac Tromethamine (Toradol) 30 mg Q8H PRN IV PAIN Last administered on 19:49; Admin Dose 30 MG; Start 07/11/17 at 21:30; Stop 07/14/17 at 21:29 Famotidine (Pepcid) 20 mg Q12 PO Last administered on 07/13/17 09:11; Admin Dose 20 MG; Start 07/13/17 at 09:00 MAKAYLA RESENDIZ MD Jul 13, 2017 11:31
[2017-07-13] MEDS: KETOROLAC 30 MG INJ IV PRN ×2 (12:12→21:08)
[2017-07-13] MEDS ORDERED: POTASSIUM CHLORIDE (SR) 20 MEQ TAB PO STA (12:18)
--- NOTE | 2017-07-13 16:11 | PN ---
Date/Time of Note Date/Time of Note DATE: 07/13/17 TIME: 16:07 Assessment/Plan Lines/Catheters IV Catheter Type (from [facility]): Peripheral IV Fermin in Place (from [facility]): No Assessment/Plan Chief Complaint/Hosp Course 1. Symptomatic Cholelithiasis: with elevated LFT's; improved abdominal pain; LFTs improving: s/p lap lashawn -advance diet as jennifer -pain management -ambulate -IS 2. Hyperbilirubinemia: ? choledocholithiasis: resolved 3. Transaminitis: likely 2/2 above; improving -as above 4. UTI: no dysuria -abx per sensitivity -encourage frequent bladder emptying 5. Severe obesity: -weight management - diet and nutrition optimization Thank you. Patient seen and examined in collaboration with Dr. Brandon Mackey. Problems: Subjective 24 Hr Interval Summary Pain improved. Tolerating solid diet. +flatus. No BM. Draining serosanguineous drainage from SCARLETT. No fevers, chills, sob, congested cough, n/v/d/dysuria, cp, palpitations. Exam/Review of Systems Vital Signs Vitals Vital Signs Date Time Temp Pulse Resp B/P Pulse Ox O2 Delivery O2 Flow Rate FiO2 07/13/17 07:38 98.0 85 19 120/74 97 07/11/17 22:20 Room Air 07/11/17 20:19 1.0 Intake and Output 07/12/17 07/12/17 07/13/17 15:00 23:00 07:00 Intake Total 100 ml 1350 ml 500 ml Output Total 40 ml 2000 ml Balance 100 ml 1310 ml -1500 ml Exam Free Text/Dictation Constitutional: alert, oriented Psych: nl mood/affect Head: atraumatic, normocephalic Eyes: nl lids, nl sclera ENMT: mucosa pink and moist, nl nasal mucosa & septum Neck: non-tender, supple Respiratory: normal air movement Cardiovascular: nl pulses, regular rate and rhythm Gastrointestinal: min-tender, soft, SCARLETT with serosanguineous drainage, incision sites dry No distended Musculoskeletal: nl extremities to inspection, nl gait and stance Extremities: normal pulses Neurological: nl mental status, nl speech, nl strength Skin: rash or lesions Lymph: nl lymph nodes Results Result Diagram: 07/13/17 0434 07/13/17 0400 ELMIRA BUTLER NP Jul 13, 2017 16:11
--- NOTE | 2017-07-13 17:12 | PN ---
Date/Time of Note Date/Time of Note DATE: 07/13/17 TIME: 17:09 Assessment/Plan VTE Prophylaxis VTE Prophylaxis Intervention: other Lines/Catheters IV C[facility]ter Type (from [facility]): Peripheral IV Urinary Cath still in place: No Assessment/Plan Chief Complaint/Hosp Course IMPRESSION: 1. Gallstone.s/p lap lashawn 2. abn lft. 3. Rule out common bile duct stone. 4. Clinical cholecystitis. 5 SCARLETT D + plan per surgery cklabs PAIN MEDS AMBULATE Problems: Subjective 24 Hr Interval Summary Subjective hx not possible: other (ABD PAIN+,HIGH LFT) Exam/Review of Systems Vital Signs Vitals Vital Signs Date Time Temp Pulse Resp B/P Pulse Ox O2 Delivery O2 Flow Rate FiO2 07/13/17 07:38 98.0 85 19 120/74 97 07/11/17 22:20 Room Air 07/11/17 20:19 1.0 Intake and Output 07/12/17 07/12/17 07/13/17 15:00 23:00 07:00 Intake Total 100 ml 1350 ml 500 ml Output Total 40 ml 2000 ml Balance 100 ml 1310 ml -1500 ml Exam Respiratory: clear to auscultation Cardiovascular: regular rate and rhythm Gastrointestinal: soft Musculoskeletal: nl extremities to inspection Extremities: normal pulses Results Result Diagram: 07/13/17 0434 07/13/17 0400 Results 24 hrs Laboratory Tests Test 07/13/17 04:00 07/13/17 04:34 Sodium Level 139 Potassium Level 3.2 L Chloride Level 106 Carbon Dioxide Level 27 Anion Gap 9 # Blood Urea Nitrogen 4 L Creatinine 0.61 Glucose Level 84 Calcium Level 8.3 L Total Bilirubin 0.1 L Direct Bilirubin 0.00 Indirect Bilirubin 0.1 Aspartate Amino Transf (AST/SGOT) 102 H Alanine Aminotransferase (ALT/SGPT) 288 H Alkaline Phosphatase 177 H Total Protein 6.1 # Albumin 3.1 L Globulin 3.00 Albumin/Globulin Ratio 1.03 White Blood Count 9.1 Red Blood Count 4.79 Hemoglobin 12.8 Hematocrit 39.8 Mean Corpuscular Volume 83.1 Mean Corpuscular Hemoglobin 26.7 L Mean Corpuscular Hemoglobin Concent 32.2 Red Cell Distribution Width 13.7 Platelet Count 180 # Mean Platelet Volume 10.9 H Neutrophils % 56.0 Lymphocytes % 34.6 Monocytes % 7.8 Eosinophils % 1.2 Basophils % 0.3 Nucleated Red Blood Cells % 0.0 Neutrophils # 5.1 Lymphocytes # 3.1 H Monocytes # 0.7 Eosinophils # 0.1 Basophils # 0.0 Nucleated Red Blood Cells # 0.0 Medications Medications Current Medications Sodium Chloride (NS) 1,000 ml @ 70 mls/hr [id number] IV Last administered on 07/12 23:43; Admin Dose 70 MLS/HR; Start 07/10/17 at 03:44 Ondansetron HCl (Zofran Inj) 4 mg Q6H PRN IV NAUSEA AND/OR VOMITING; Start 07/10/17 at 04:00 Metoclopramide HCl (Reglan) 10 mg Q6H PRN IV NAUSEA AND/OR VOMITING Last administered on 07/11/17 18:34; Admin Dose 10 MG; Start 07/10/17 at 04:00 Acetaminophen (Tylenol Tab) 650 mg Q6H PRN PO PAIN LEVEL 1-3 OR FEVER; Start 07/10/17 at 04:00 Morphine Sulfate (morphine) 2 mg Q4H PRN IV SEVERE PAIN LEVEL 7-10 Last administered on 07/13/17 08:01; Admin Dose 2 MG; Start 07/10/17 at 04:00 Docusate Sodium (Colace) 100 mg Q12H PRN PO CONSTIPATION Last administered on 07/13/17 12:16; Admin Dose 100 MG; Start 07/10/17 at 04:00 Zolpidem Tartrate 5 mg 5 mg QHS PRN PO SLEEP; Start 07/10/17 at 04:00 Metronidazole 100 ml @ 100 mls/hr Q8 IVPB Last administered on 07/13/17 14:22 ; Admin Dose 100 MLS/HR; Start 07/10/17 at 06:00 Ceftriaxone Sodium (Rocephin) 50 ml @ 100 mls/hr DAILY IVPB Last administered on 07/13/17 09:11; Admin Dose 100 MLS/HR; Start 07/10/17 at 09:00 Ketorolac Tromethamine (Toradol) 30 mg Q8H PRN IV PAIN Last administered on 12:12; Admin Dose 30 MG; Start 07/11/17 at 21:30; Stop 07/14/17 at 21:29 Famotidine (Pepcid) 20 mg Q12 PO Last administered on 07/13/17t 09:11; Admin Dose 20 MG; Start 07/13/17 at 09:00 REID TURNER MD Jul 13, 2017 17:12
[2017-07-13] MEDS: SOD CHLORIDE 0.9% 1,000 ML IV SCH ×2 (17:32→21:02)
[2017-07-13 19:05] VITALS: BP 109/62; RESP 18
[2017-07-14 02:00] VITALS: BP 98/59; RESP 18
[2017-07-14] MEDS: KETOROLAC 30 MG INJ IV PRN ×2 (05:21→15:39)
[2017-07-14 05:50] LABS: ALBUMIN 2.9 g/dl (3.3-4.9); ALBUMIN/GLOBULIN RATIO 1.07; CREATININE 0.65 mg/dl (0.44-1.00); POTASSIUM 3.6 mmol/L (3.5-5.1); TOTAL PROTEIN 5.6 g/dl (6.1-8.1)
[2017-07-14] MEDS: metroNIDAZOLE 500 MG/NS (PMX) 100 ML IVPB SCH ×3 (05:50→22:16)
[2017-07-14 07:35] VITALS: BP 112/67; RESP 18
[2017-07-14] MEDS: CEFTRIAXONE 1 GM/50 ML (PMX) 50 ML IVPB SCH (10:23)
[2017-07-14] MEDS: FAMOTIDINE 20 MG TAB PO SCH ×2 (10:23→20:31)
[2017-07-14] MEDS: morphine 2 MG INJ IV PRN (11:53)
[2017-07-14] MEDS: SOD CHLORIDE 0.9% 1,000 ML IV SCH (13:33)
--- NOTE | 2017-07-14 13:52 | CONS ---
Date/Time of Note Date/Time of Note DATE: 07/14/17 TIME: 13:51 Assessment/Plan Assessment/Plan Additional Assessment/Plan IMPRESSION: 1. Gallstones. 2. Dilated bile duct. Patient may have passed the stone. 3. Abnormal liver function tests which is coming down and patient is asymptomatic now indicating that patient may have passed the stone. Patient's intraoperative cholangiogram was negative for any obstruction bile duct stone 4. Status post cholecystectomy, with SCARLETT drain. She has serosanguineous drainage in SCARLETT Plan Continue postop care Pain management Consultation Date/Type/Reason Admit Date/Time Jul 10, 2017 at 03:34 Initial Consult Date 07/10/17 Type of Consultation: Surgical 24 HR Interval Summary Free Text/Dictation Recent still has abdominal pain but he does improved and she is tolerating diet Constitutional: improved, no complaints Exam/Review of Systems Vital Signs Vitals Vital Signs Date Time Temp Pulse Resp B/P Pulse Ox O2 Delivery O2 Flow Rate FiO2 07/14/17 07:35 98.5 71 18 112/67 99 07/11/17 22:20 Room Air 07/11/17 20:19 1.0 Intake and Output 07/13/17 07/13/17 07/14/17 15:00 23:00 07:00 Intake Total 50 ml 1980 ml 1200 ml Output Total 1360 ml 1210 ml Balance 50 ml 620 ml -10 ml Exam Constitutional: alert, oriented, well developed Psych: nl mood/affect, no complaints Head: atraumatic, normocephalic Eyes: EOMI, PERRL, nl conjunctiva, nl lids, nl sclera ENMT: nl external ears & nose, nl lips & teeth, nl nasal mucosa & septum Neck: non-tender, supple Respiratory: clear to auscultation, normal air movement Cardiovascular: nl pulses, regular rate and rhythm Gastrointestinal: nl liver, spleen, non-tender, soft Musculoskeletal: nl extremities to inspection, nl gait and stance Extremities: normal pulses Neurological: DESK SERGEANT II-XII intact, nl mental status, nl speech, nl strength Skin: nl turgor, No rash or lesions Lymph: nl lymph nodes Results Result Diagram: 07/13/17 0434 07/14/17 0433 Results 24 hrs Laboratory Tests Test 07/14/17 04:33 Sodium Level 140 Potassium Level 3.6 Chloride Level 109 Carbon Dioxide Level 26 Anion Gap 9 Blood Urea Nitrogen 7 Creatinine 0.65 Glucose Level 97 Calcium Level 9.0 Total Bilirubin 0.0 L Direct Bilirubin 0.00 Indirect Bilirubin 0.0 Aspartate Amino Transf (AST/SGOT) 47 H Alanine Aminotransferase (ALT/SGPT) 211 H Alkaline Phosphatase 165 H Total Protein 5.6 L Albumin 2.9 L Globulin 2.70 Albumin/Globulin Ratio 1.07 Carcinoembryonic Antigen < 0.3 Medications Medications Current Medications Sodium Chloride (NS) 1,000 ml @ 70 mls/hr [id number] IV Last administered on 07/14 13:33; Admin Dose 70 MLS/HR; Start 07/10/17 at 03:44 Ondansetron HCl (Zofran Inj) 4 mg Q6H PRN IV NAUSEA AND/OR VOMITING; Start 07/10/17 at 04:00 Metoclopramide HCl (Reglan) 10 mg Q6H PRN IV NAUSEA AND/OR VOMITING Last administered on 07/11/17 18:34; Admin Dose 10 MG; Start 07/10/17 at 04:00 Acetaminophen (Tylenol Tab) 650 mg Q6H PRN PO PAIN LEVEL 1-3 OR FEVER; Start 07/10/17 at 04:00 Morphine Sulfate (morphine) 2 mg Q4H PRN IV SEVERE PAIN LEVEL 7-10 Last administered on 07/14/17 11:53; Admin Dose 2 MG; Start 07/10/17 at 04:00 Docusate Sodium (Colace) 100 mg Q12H PRN PO CONSTIPATION Last administered on 07/13/17 12:16; Admin Dose 100 MG; Start 07/10/17 at 04:00 Zolpidem Tartrate 5 mg 5 mg QHS PRN PO SLEEP; Start 07/10/17 at 04:00 Metronidazole 100 ml @ 100 mls/hr Q8 IVPB Last administered on 07/14/17 13:33 ; Admin Dose 100 MLS/HR; Start 07/10/17 at 06:00 Ceftriaxone Sodium (Rocephin) 50 ml @ 100 mls/hr DAILY IVPB Last administered on 07/14/17 10:23; Admin Dose 100 MLS/HR; Start 07/10/17 at 09:00 Ketorolac Tromethamine (Toradol) 30 mg Q8H PRN IV PAIN Last administered on 05:21; Admin Dose 30 MG; Start 07/11/17 at 21:30; Stop 07/14/17 at 21:29 Famotidine (Pepcid) 20 mg Q12 PO Last administered on 07/14/17 10:23; Admin Dose 20 MG; Start 07/13/17 at 09:00 MAKAYLA RESENDIZ MD Jul 14, 2017 13:52
[2017-07-14] MEDS ORDERED: HYDROCODONE/APAP (5/325) TAB PO PRN (16:30)
[2017-07-14] MEDS ORDERED: traMADol 50 MG TAB PO PRN (16:30)
--- NOTE | 2017-07-14 16:40 | PN ---
Date/Time of Note Date/Time of Note DATE: 07/14/17 TIME: 16:38 Assessment/Plan VTE Prophylaxis VTE Prophylaxis Intervention: ambulation Lines/Catheters IV C[facility]ter Type (from [facility]): Peripheral IV Urinary Cath still in place: No Assessment/Plan Chief Complaint/Hosp Course 1. Gallstones, .s/p lap cholecystectomy 2. abnormal LFT. 3. Clinical cholecystitis. 4. Overweight Problems: Assessment/Plan 1. D/c tomorrow if ok with dr Yuan 2. Today pt is dizzy, needs to start on PO meds Subjective 24 Hr Interval Summary Free Text/Dictation dizziness Gastrointestinal: blood, constipation, decreased appetite, diarrhea, flatus, nausea, no complaints, other, pain, passing stool, vomiting Exam/Review of Systems Vital Signs Vitals Vital Signs Date Time Temp Pulse Resp B/P Pulse Ox O2 Delivery O2 Flow Rate FiO2 07/14/17 07:35 98.5 71 18 112/67 99 07/11/17 22:20 Room Air 07/11/17 20:19 1.0 Intake and Output 07/13/17 07/13/17 07/14/17 15:00 23:00 07:00 Intake Total 50 ml 1980 ml 1200 ml Output Total 1360 ml 1210 ml Balance 50 ml 620 ml -10 ml Exam Constitutional: alert, oriented Gastrointestinal: soft, surgical scars Results Result Diagram: 07/13/17 0434 07/14/17 0433 Results 24 hrs Laboratory Tests Test 07/14/17 04:33 Sodium Level 140 Potassium Level 3.6 Chloride Level 109 Carbon Dioxide Level 26 Anion Gap 9 Blood Urea Nitrogen 7 Creatinine 0.65 Glucose Level 97 Calcium Level 9.0 Total Bilirubin 0.0 L Direct Bilirubin 0.00 Indirect Bilirubin 0.0 Aspartate Amino Transf (AST/SGOT) 47 H Alanine Aminotransferase (ALT/SGPT) 211 H Alkaline Phosphatase 165 H Total Protein 5.6 L Albumin 2.9 L Globulin 2.70 Albumin/Globulin Ratio 1.07 Carcinoembryonic Antigen < 0.3 Medications Medications Current Medications Sodium Chloride (NS) 1,000 ml @ 70 mls/hr [id number] IV Last administered on 07/14t 13:33; Admin Dose 70 MLS/HR; Start 07/10/17 at 03:44 Ondansetron HCl (Zofran Inj) 4 mg Q6H PRN IV NAUSEA AND/OR VOMITING; Start 07/10/17 at 04:00 Metoclopramide HCl (Reglan) 10 mg Q6H PRN IV NAUSEA AND/OR VOMITING Last administered on 07/11/17 18:34; Admin Dose 10 MG; Start 07/10/17 at 04:00 Acetaminophen (Tylenol Tab) 650 mg Q6H PRN PO PAIN LEVEL 1-3 OR FEVER; Start 07/10/17 at 04:00 Morphine Sulfate (morphine) 2 mg Q4H PRN IV SEVERE PAIN LEVEL 7-10 Last administered on 07/14/17 11:53; Admin Dose 2 MG; Start 07/10/17 at 04:00 Docusate Sodium (Colace) 100 mg Q12H PRN PO CONSTIPATION Last administered on 07/13/17 12:16; Admin Dose 100 MG; Start 07/10/17 at 04:00 Zolpidem Tartrate 5 mg 5 mg QHS PRN PO SLEEP; Start 07/10/17 at 04:00 Metronidazole 100 ml @ 100 mls/hr Q8 IVPB Last administered on 07/14/17 13:33 ; Admin Dose 100 MLS/HR; Start 07/10/17 at 06:00 Ceftriaxone Sodium (Rocephin) 50 ml @ 100 mls/hr DAILY IVPB Last administered on 07/14/17 10:23; Admin Dose 100 MLS/HR; Start 07/10/17 at 09:00 Ketorolac Tromethamine (Toradol) 30 mg Q8H PRN IV PAIN Last administered on 15:39; Admin Dose 30 MG; Start 07/11/17 at 21:30; Stop 07/14/17 at 21:29 Famotidine (Pepcid) 20 mg Q12 PO Last administered on 07/14/17 10:23; Admin Dose 20 MG; Start 07/13/17 at 09:00 Tramadol HCl (Ultram) 50 mg Q6H PRN PO PAIN LEVEL 4-7; Start 07/14/17 at 16:30 Acetaminophen/ Hydrocodone Bitart ([place] (5/325)) 1 tab Q4H PRN PO PAIN LEVEL 1 -5; Start 07/14/17 at 16:30 MIKE HARRY Jul 14, 2017 16:40
--- NOTE | 2017-07-14 20:30 | PN ---
Date/Time of Note Date/Time of Note DATE: 07/14/17 TIME: 20:27 Assessment/Plan Lines/Catheters IV Catheter Type (from Nrs): Peripheral IV Fermin in Place (from Nrs): No Assessment/Plan Chief Complaint/Hosp Course 1. Symptomatic Cholelithiasis: with elevated LFT's; improved abdominal pain; LFTs improving: s/p lap lashawn -advance diet as jennifer -pain management -ambulate -IS may be discharged per medical team. To follow in office in 1-2weeks. Call for appointment. 2. Hyperbilirubinemia: ? choledocholithiasis: resolved 3. Transaminitis: likely 2/2 above; continuing to improve -as above 4. UTI: no dysuria -abx per sensitivity -encourage frequent bladder emptying 5. Severe obesity: -weight management - diet and nutrition optimization Thank you. Patient seen and examined in collaboration with Dr. Brandon Mackey. Problems: Subjective 24 Hr Interval Summary Continjes to have pain but improved. Min output from [facility]- drain Dcd. Tolerating Diet. +bowel function. No cp, palpitations,sob, congested cough, n/v/d/dysuria. Exam/Review of Systems Vital Signs Vitals Vital Signs Date Time Temp Pulse Resp B/P Pulse Ox O2 Delivery O2 Flow Rate FiO2 07/14/17 07:35 98.5 71 18 112/67 99 07/11/17 22:20 Room Air 07/11/17 20:19 1.0 Intake and Output 07/13/17 07/13/17 07/14/17 14:59 22:59 06:59 Intake Total 50 ml 1980 ml 1300 ml Output Total 1360 ml 1210 ml Balance 50 ml 620 ml 90 ml Exam Free Text/Dictation onstitutional: alert, oriented Psych: nl mood/affect Head: atraumatic, normocephalic Eyes: nl lids, nl sclera ENMT: mucosa pink and moist, nl nasal mucosa & septum Neck: non-tender, supple Respiratory: normal air movement Cardiovascular: nl pulses, regular rate and rhythm Gastrointestinal: min-tender, soft, incision sites dry No distended Musculoskeletal: nl extremities to inspection, nl gait and stance Extremities: normal pulses Neurological: nl mental status, nl speech, nl strength Skin: rash or lesions Lymph: nl lymph nodes Results Result Diagram: 07/13/17 0434 07/14/17 0433 ELMIRA BUTLER NP Jul 14, 2017 20:30
[2017-07-14 21:06] VITALS: BP 125/76; RESP 20
[2017-07-15 02:05] VITALS: BP 95/53; RESP 20
[2017-07-15 05:40] LABS: BASOPHILS % 0.4 % (0.0-2.0); EOSINOPHILS # 0.3 10^3/ul (0.0-0.5); EOSINOPHILS % 3.6 % (0.0-7.0); HEMATOCRIT 43.3 % (37.0-47.0); HEMOGLOBIN 13.6 g/dl (12.0-16.0); LYMPHOCYTES # 3.1 10^3/ul (0.8-2.9); LYMPHOCYTES % 39.6 % (15.0-51.0); MEAN CORPUSCULAR HEMOGLOBIN 26.9 pg (29.0-33.0); MEAN CORPUSCULAR HGB CONC 31.4 g/dl (32.0-37.0); MEAN CORPUSCULAR VOLUME 85.6 fl (82.0-101.0); MEAN PLATELET VOLUME 11.4 fl (7.4-10.4); MONOCYTE # 0.6 10^3/ul (0.3-0.9); NEUTROPHIL # 3.9 10^3/ul (1.6-7.5); NEUTROPHILS % 49.1 % (39.0-77.0); PLATELET COUNT 211 10^3/UL (140-415); RED BLOOD COUNT 5.06 10^6/ul (4.20-5.40); RED CELL DISTRIBUTION WIDTH 13.7 % (11.5-14.5); WHITE BLOOD COUNT 7.9 10^3/ul (4.8-10.8)
[2017-07-15 06:08] LABS: CALCIUM 9.2 mg/dl (8.4-10.2); CREATININE 0.71 mg/dl (0.44-1.00); POTASSIUM 3.4 mmol/L (3.5-5.1)
[2017-07-15] MEDS: metroNIDAZOLE 500 MG/NS (PMX) 100 ML IVPB SCH ×2 (06:12→13:41)
[2017-07-15 08:07] VITALS: BP 103/57
[2017-07-15] MEDS: FAMOTIDINE 20 MG TAB PO SCH (08:21)
[2017-07-15] MEDS: CEFTRIAXONE 1 GM/50 ML (PMX) 50 ML IVPB SCH (08:21)
--- NOTE | 2017-07-15 17:07 | PDOCDIS ---
Discharge Instructions DIAGNOSIS Discharge Diagnosis s/p lap cholecystectomy CONDITION Patient Condition: Good HOME CARE INSTRUCTIONS: Special Diet: regular ACTIVITY: Activity Restrictions: Slowly Increase Activity Bathing Restrictions: Shower SCHOOL/WORK RELEASE May return to School/Work with: With Restrictions MIKE HARRY Jul 15, 2017 17:07
[2017-07-15] MEDS ORDERED: LEVO500T72 PO (17:16)
--- NOTE | 2017-07-15 17:17 | PDOCDIS ---
Discharge Instructions DIAGNOSIS Discharge Diagnosis s/p lap cholecystectomy CONDITION Patient Condition: Good HOME CARE INSTRUCTIONS: Diet Instructions: Low Fat /CholesterolSpecial Diet: regular ACTIVITY: Activity Restrictions: Slowly Increase Activity Bathing Restrictions: Shower FOLLOW UP/APPOINTMENTS Follow-up Plan [address] Mackey SCHOOL/WORK RELEASE May return to School/Work with: With Restrictions MIKE HARRY Jul 15, 2017 17:17
--- NOTE | 2017-07-16 17:14 | DS ---
Date/Time of Note Date/Time of Note DATE: 07/16/17 TIME: 17:06 Discharge Summary Admission/Discharge Info Admit Date/Time Jul 10, 2017 at 03:34 Discharge Date/Time Jul 15, 2017 at 18:05 Discharge Diagnosis s/p lap cholecystectomy Patient Condition: Good Consults Dr Mauricio ERAZO and Dr Mackey, Surgeon Procedures Lap Cholecystectomy with Intraoperative cholangiogram Hospital Course The patient is a 21-year-old female with a history of who presented with abdominal pain, noted to have gallstone symptomatic. Hematocrit 45.6, sodium 140, potassium 3.7. AST 613, ALT 855, alk phos 288. Dr. José Mackey has been called to see this patient in consultation. The patient has a contracted gallbladder filled with gallstones. During hospitalization pain was controlled and antibiotics started. Pt underwent cholecystectomy with external drain placement. She tolerated procedure well. 1. Symptomatic Cholelithiasis was resolved, improved abdominal pain; LFTs improving: After surgery lap cholecystectomy diet was advanced as tolerated. Pt was ambulate and she was discharged home in stable condition to follow in office dr mackey in 1-2weeks. UTI also was resolved Home Meds Active Scripts Levofloxacin* (Levaquin*) 500 Mg Tablet, 500 MG PO DAILY for 4 Days, TAB Prov:MIKE HARRY 07/15/17 Ibuprofen* (Motrin*) 600 Mg Tab, 600 MG PO Q6, #20 TAB Prov:SUMANTH CARVAJAL MD 06/24/17 Hydrocodone/Acetaminophen ([place] 5-325 Tablet) 1 Each Tablet, 1 TAB PO Q6H Y for PAIN, #15 TAB Prov:SUMANTH CARVAJAL MD 06/24/17 Ondansetron Hcl* (Zofran*) 4 Mg Tablet, 4 MG PO Q8H Y for NAUSEA AND/OR VOMITING , #10 TAB Prov:MAMIE REECE DO 10/02/16 Reported Medications Multivit/Min/Fol Ac/Iron/Pren* ( S*) 1 Tab Tab, 1 TAB PO DAILY, TAB 06/16/16 Discontinued Scripts Ondansetron (Ondansetron Odt) 8 Mg Tab.rapdis, 8 MG PO Q6H Y for NAUSEA AND/OR VOMITING, #10 TAB Prov:SUMANTH CARVAJAL MD 06/24/17 Phenazopyridine Hcl* (Pyridium*) 200 Mg Tab, 200 MG PO TID Y for URINARY PAIN, # 6 TAB Prov:MERARI DANIELLE PA-C 02/24/17 Ranitidine Hcl* (Zantac*) 150 Mg Tablet, 150 MG PO BID Y for EPIGASTRIC PAIN, # 30 TAB Prov:MAMIE REECE DO 10/02/16 Ciprofloxacin Hcl* (Ciprofloxacin Hcl*) 500 Mg Tablet, 500 MG PO BID for 3 Days , TAB Prov:MAMIE REECE DO 10/02/16 Follow-up Plan [address] Mackey Primary Care Provider Perez Cristina Time spent on discharge: < 30 minutes MIKE HARRY Jul 16, 2017 17:13
== END 2017-07-15 18:05 | disposition home or self-care (01) | DRG 418 ==
LOC: FTE 23:42 → MS1 07-10 03:34
PROVIDERS: ADMIT Internal Medicine Nephrology; ATTEND Internal Medicine Nephrology
PROC: 0FB04ZX Excision of Liver, Percutaneous Endoscopic Approach, Diagnostic (ICD-10-PCS; 2017-07-11)
PROC: BF12YZZ Fluoroscopy of Gallbladder using Other Contrast (ICD-10-PCS; 2017-07-11)
PROC: 0FT44ZZ Resection of Gallbladder, Percutaneous Endoscopic Approach (ICD-10-PCS; principal; 2017-07-11 16:30)
DX: K80.10 Calculus of gallbladder with chronic cholecystitis without obstruction (principal); N39.0 Urinary tract infection, site not specified; E66.01 Morbid (severe) obesity due to excess calories; R94.5 Abnormal results of liver function studies; E80.6 Other disorders of bilirubin metabolism; Z68.36 Body mass index [BMI] 36.0-36.9, adult; Z71.3 Dietary counseling and surveillance
CPT/HCPCS: 36415; 71010; 74181; 74300; 76705; 80048; 80053; 81001; 81003; 82150; 82378; 83690; 83735; 84100; 85025; 85610; 88300; 88304; 88307; 88313; 90686; 96374; 96375; J0696; J1100; J1885; J2270; J2405; J2765; J3010; J7030; Q9967

== ENCOUNTER 2018-05-09 17:57 | Emergency (ER) | END 2018-05-09 19:57 | disposition home or self-care (01) ==